=== PATIENT | male | born 1950 | race Caucasian/White ===

== ENCOUNTER 2024-03-10 08:56 | Outpatient (AMB) | payer MEDICARE, MEDICAID, SELFPAY ==
--- NOTE | 2024-03-10 08:59 | A.OFFVIS_ITS ---
Vital Signs 03/10/24 09:08 Height 6 ft Weight 269 lb 2 oz BMI 36.5 BP 124/63 Blood Pressure Location Lt brachial Position Sitting Pulse 73 Pulse Source Pulse Oximeter Pulse Oximetry (%) 96 Oxygen Delivery Method Room Air Intake Visit Reasons: Left lumbar radiculopathy Intake Note: Pain today 10/14 Labourers Required: Yes Labourers Language: Bermudian Labourers Services: Labourers Offered & Declined Labourers Name: Provider speaks Bermudian Allergies No Known Allergies Allergy (Verified 03/10/24 09:04) Medication List - Last Reconciled 03/10/24 by FRED Portillo acetaminophen (Tylenol) 325 mg PO QID PRN amlodipine 10 mg PO DAILY aspirin 325 mg PO DAILY clotrimazole 1% 1 appl topical BID diclofenac sodium 1% (Arthritis Pain (diclofenac)) 4 grams topical QID gabapentin 300 mg PO TID levothyroxine 112 mcg PO DAILY olmesartan (Benicar) 40 mg PO DAILY tamsulosin 0.4 mg PO DAILY HPI HPI Left lumbar radiculopathy: Details: Patient is a pleasant 73-year-old male with a history of chronic low back pain, left lumbar radiculopathy, bilateral knee pain, hand arthritis, who presents today for initial evaluation of acute on chronic low back pain with radicular symptoms. Patient is accompanied by his grand-daughter. Labourers not utilized today, provider is fluent in Bermudian. Denies any specific trauma, injury or inciting events. Reports history of mechanical fall a few months ago which increased his right knee pain. 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 Back pain is axial and also radiates into bilateral lower extremities posteriorly and into his feet. Reports significant cramping and tenderness in his calves and upper inner thighs, worse on the left. Denies previous spine surgery or injections. He is followed at [facility] for knee and hand arthritis and regularly receives cortisone and gel knee injections. Back pain is aggravated by walking, twisting, bending, climbing stairs, weight bearing, changing positions and partially relieved with rest, Tylenol, topical applications, and heat therapy. Patient reports he takes gabapentin for gout in his feet and it helps with leg cramping. He completed a course of physical therapy and massages without any improvement. Patient reports recently stopped swimming due to increased pain. Pain affects his daily activities and functioning, mobility, sleep, and recreational activities. Denies any fever or chills, abdominal or groin pain, foot drop, bladder or bowel dysfunction or saddle anesthesia. Reports left lower extremity weakness due to pain. Ambulates with mildly antalgic gait with the use of cane. Oswestry low back disability score =27 (severe disability) Location: Lower back radiates down bilateral legs, worse on the left Duration: Chronic pain for many years, worsening for past 1-2 years Characteristics of symptom or complaint: Aching, tingling, pins and needles, shooting, pulling, cramping Aggravating or associated factors: Movements, climbing stairs, bending, standing, walking, cold weather Relieving factors: Stretching, Tylenol, IcyHot, lidocaine patches, heat, rest Treatment: PT, back brace, massages, aqua therapy, cane, knee injections [facility] Medical History (Updated 03/10/24 @ 09:57 by FRED Portillo) Pre-diabetes HTN (hypertension) Hand arthritis Bilateral knee pain Lumbar radiculopathy Chronic low back pain Constipation Surgical History (Updated 03/10/24 @ 09:54 by FRED Portillo) H/O hemorrhoidectomy History of nasal surgery (~2023) Social History (Updated 03/10/24 @ 09:08 by Desi Sharp) Alcohol intake: never Patient Tobacco Use Status: Never used Tobacco Review of Systems Const All systems reviewed & are unremarkable except as noted in HPI and below Reports as per HPI, Denies body aches, Denies chills, Reports difficulty sleeping, Denies fever(s), Denies frequent falls, Denies malaise, Denies night sweats, Reports weakness (LLE due to pain) and Denies weight loss Card Denies chest pain, Denies chest pain with activity, Reports claudication (tenderness and cramping BLE calves, left>right), Denies lightheadedness, Denies palpitations and Denies dyspnea on exertion Resp Denies cough and Denies dyspnea on exertion GI Denies abdominal pain, Reports constipation (chronic), Denies nausea and Denies vomiting Neuro Denies frequent falls and Reports weakness (LLE due to pain) Endo Denies palpitations Physical Exam Vital Signs: Last Vital Signs Pulse 73 03/10/24 09:08 BP 124/63 03/10/24 09:08 Pulse Ox 96 03/10/24 09:08 Oxygen Delivery Method Room Air 03/10/24 09:08 BMI result Body Mass Index 36.5 General: Appears afebrile. Alert and oriented. Mood and affect appropriate. Follows and participates in conversation appropriately. Respiratory effort is unlabored. No cough. Able to transition from sit to stand unassisted. Uses cane with ambulation. Ambulates with bilaterally normal heel strike and toe off, reports increase in pain on the left with heel/toe standing. General: Yes no CVA tenderness Back/Spine/Pelvis Other: Limited lumbar ROM due to pain. Antalgic gait with mild limping. Can flex forward to 70-75 degrees and extend to 5-10 degrees before experiencing lumbar pain. Demonstrates 5/5 right and 4/5 left strength of quadriceps bilaterally as well as flexion/dorsiflexion of bilateral feet against resistance. 2+ pedal pulses bilaterally. Straight leg rise with dorsiflexion positive on the left. Diminished patellar and achilles reflexes bilaterally. Facet loading test positive bilaterally. Waqar sign positive bilaterally, Dane?s reproduces lateral hip pain bilaterally, Pelvic compression and Stinchfield tests are negative bilaterally. No groin pain with I/E hip rotations. Valsalva maneuver negative. Back: no CVA tenderness Cervical Spine: loss of normal cervical lordosis, cervical muscular tenderness, No Cervical spine tenderness and No step off deformity Thoracic/Lumbar Spine: thoracic and lumbar spine normal to inspection, No Thoracic/lumbar spine scar(s), Lasegue's sign positive on the left and localized, pain with thoraco-lumbar ROM, paraspinal muscle tenderness on the left greater than right, thoraco-lumbar ROM limited, No thoracic spinal tenderness and lumbar spinal tenderness (L3-S1) Pelvis: buttock tenderness on the left Sacroiliac joints: bilaterally tender to palpation Extrem General: Yes capillary refill normal, Yes no clubbing, cyanosis or edema, Yes calf tenderness (BLE, left>right) and No venous stasis dermatitis Right lower extremity: knee (Limited ROM due to pain) Details: normal to inspection, tenderness Location: of the medial joint line and of the lateral joint line and crepitus; no swelling, no ecchymosis, no deformity and no unusual warmth Left lower extremity: knee (Limited ROM due to pain) Details: normal to inspe ction, tenderness Location: of the patella, of the medial joint line and of the lateral joint line and crepitus; no ecchymosis, no deformity and no unusual warmth Results Reviewed Results Reviewed: No imaging results are available for review today. Assessment & Plan Assessment & Plan (1) Lumbosacral spondylosis: Code(s): M47.817 - Spondylosis without myelopathy or radiculopathy, lumbosacral region Category: Medical (2) Lumbar radiculopathy: Code(s): M54.16 - Radiculopathy, lumbar region Category: Medical (3) Lumbosacral spondylosis: Code(s): M47.817 - Spondylosis without myelopathy or radiculopathy, lumbosacral region Category: Medical (4) Lumbar degenerative disc disease: Code(s): M51.369 - Other intervertebral disc degeneration, lumbar region without mention of lumbar back pain or lower extremity pain Category: Medical (5) Chronic low back pain: Code(s): M54.50 - Low back pain, unspecified; G89.29 - Other chronic pain Category: Medical (6) Bilateral calf pain: Code(s): M79.661 - Pain in right lower leg; M79.662 - Pain in left lower leg Category: Medical (7) Bilateral lower extremity edema: Code(s): R60.0 - Localized edema Category: Medical (8) Lumbosacral spondylosis: Code(s): M47.817 - Spondylosis without myelopathy or radiculopathy, lumbosacral region Category: Medical (9) Lumbar radiculopathy: Code(s): M54.16 - Radiculopathy, lumbar region Category: Medical (10) Lumbar degenerative disc disease: Code(s): M51.369 - Other intervertebral disc degeneration, lumbar region without mention of lumbar back pain or lower extremity pain Category: Medical (11) Bilateral knee pain: Comment: Receives cortisone and gel injections at [facility] Code(s): M25.561 - Pain in right knee; M25.562 - Pain in left knee Category: Medical Plan Lumbar spine imaging to assess degree of degenerative changes, any subluxation, listhesis, compression fractures or pars defects.?MRI of the lumbar spine to assess for neural integrity and compression. Patient's back pain has been resistant to conservative treatments, including PT, massages, aqua therapy, topical and oral medications, activity modifications. Discussed treatment options for both his axial low back as well as radicular pain. Informational pamphlets provided to patient and family. We will review imaging prior to interventional treatments. Encouraged patient daily physical activity, adequate hydration, good posture, and weight loss. US venous duplex of BLE to rule out DVT. Reports chronic cramping and tenderness on palpation in both calves, left worse than right. All questions and concerns have been answered and the patient agreed with the treatment plan.? Follow-up for x-ray/MRI/US results and sooner as needed. Orders: Orders XR lumbar spine 4V min Today G89.29 - Other chronic pain, M47.817 - Spondylosis without myelopathy or radiculopathy, lumbosacral region, M51.369 - Other intervertebral disc degeneration, lumbar region without mention of lumbar back p ain or lower extremity pain, M54.16 - Radiculopathy, lumbar region, M54.50 - Low back pain, unspecified US venous duplex LE BI Today M79.661 - Pain in right lower leg, M79.662 - Pain in left lower leg, R60.0 - Localized edema MR lumbar spine wo con Today M47.817 - Spondylosis without myelopathy or radiculopathy, lumbosacral region, M51.369 - Other intervertebral disc degeneration, lumbar region without mention of lumbar back pain or lower extremity pain, M54.16 - Radiculopathy, lumbar region Coding Level of Care Code New Pt Level 4 (72570) Complex EM visit Add On G2211 Diagnoses Lumbosacral spondylosis M47.817 Lumbar radiculopathy M54.16 Lumbar degenerative disc disease M51.369 Chronic low back pain M54.50; G89.29 Bilateral calf pain M79.661; M79.662 Bilateral lower extremity edema R60.0 Bilateral knee pain M25.561; M25.562
[2024-03-10 09:08] VITALS: BP 124/63; PULSE 73; O2SAT 96; BMI 36.5
== END 2024-03-10 09:47 | disposition home or self-care (01) ==
PROVIDERS: PCP Physician Assistant; Visit Provider Nurse Practitioner Family
DX: M47.817 Spondylosis without myelopathy or radiculopathy, lumbosacral region (principal); M54.16 Radiculopathy, lumbar region; M51.369 Other intervertebral disc degeneration, lumbar region without mention of lumbar back pain or lower extremity pain; M54.50 Low back pain, unspecified; G89.29 Other chronic pain; M79.661 Pain in right lower leg; M79.662 Pain in left lower leg; R60.0 Localized edema; M25.561 Pain in right knee; M25.562 Pain in left knee
CPT/HCPCS: 99204; G2211

== ENCOUNTER 2024-03-10 08:56 | Outpatient (REF) | payer MEDICARE, MEDICAID, SELFPAY | END 2024-03-10 08:57 | disposition home or self-care (01) | LOC: HO.XRAY 08:56 | PROVIDERS: PCP Physician Assistant; Visit Provider Nurse Practitioner Family | DX: M47.817 Spondylosis without myelopathy or radiculopathy, lumbosacral region (principal); M54.16 Radiculopathy, lumbar region; M51.369 Other intervertebral disc degeneration, lumbar region without mention of lumbar back pain or lower extremity pain; M54.50 Low back pain, unspecified; G89.29 Other chronic pain; M79.661 Pain in right lower leg; M79.662 Pain in left lower leg; R60.0 Localized edema; M25.561 Pain in right knee; M25.562 Pain in left knee | CPT/HCPCS: 72110; 99202 ==

== ENCOUNTER 2024-03-14 15:15 | Outpatient (REF) | payer MEDICARE, MEDICAID, SELFPAY ==
--- NOTE | ~2024-03-14 | US_ITS ---
EXAMINATION: US TRIPLEX LOWER EXTREMITY, BILATERAL CLINICAL INFORMATION: Pain in right lower leg COMPARISON: None available. TECHNIQUE: Color-flow triplex imaging with spectral analysis and compression Doppler were performed on the bilateral lower extremities. FINDINGS: Respiratory variation, normal compression and augmented flow are noted throughout the bilateral lower extremities. The visualized common femoral vein, superficial femoral vein, profunda femoral vein, popliteal vein and midcalf peroneal and posterior tibial venous segments show no evidence of deep venous thrombosis bilaterally. There is no Valdes's cyst. US/US venous duplex LE BI IMPRESSION: No evidence of deep venous thrombosis involving the bilateral lower extremities. Electronically signed by: eKn Zelaya MD 03/14/2024 03:54 PM EST Workstation: [id number]
== END 2024-03-14 15:16 | disposition home or self-care (01) ==
LOC: HO.US 15:15
PROVIDERS: PCP Physician Assistant; Visit Provider Nurse Practitioner Family
DX: M79.661 Pain in right lower leg (principal); M79.662 Pain in left lower leg; R60.0 Localized edema
CPT/HCPCS: 93970

== ENCOUNTER 2024-04-07 08:41 | Outpatient (AMB) | payer MEDICARE, MEDICAID, SELFPAY ==
--- NOTE | 2024-04-07 08:49 | A.OFFVIS_ITS ---
Vital Signs 04/07/24 08:55 Height 6 ft Weight 270 lb BMI 36.6 BP 125/60 Blood Pressure Location Lt brachial Position Sitting Pulse 68 Pulse Source Pulse Oximeter Pulse Oximetry (%) 99 Oxygen Delivery Method Room Air Intake Visit Reasons: Discuss MRI Results Intake Note: Pain today 5 Front End Developer Designer Required: Yes Front End Developer Designer Language: Brazilian Front End Developer Designer Services: Front End Developer Designer Offered & Declined Front End Developer Designer Name: Provider is fluent in Brazilian Accompanied by: Family/Other Allergies No Known Allergies Allergy (Verified 04/07/24 08:55) HPI Comments Details: Patient presents today for follow up today to discuss recent lumbar spine MRI results. He continues to endorse low back pain with radiculopathy, both legs, worse on the left. Pain radiates into his buttocks and into lower calves and ankles with numbness and tingling. He also reports bilateral knee pain and is interested in therapeutic injections for both pain generators, initially for back pain. His mobility and functioning has been significantly limited due to pain. Reports increase low back and left leg pain with coughing or bowel movements when straining. Recent bilateral lower extremities US was negative for DVT. Lumbar spine MRI is noted below and was reviewed with patient and family today. Patient is hesitant towards back surgery but will consider Neurosurgical evaluation if no pain relief or function improvement with injection. Denies any fever or chills, abdominal or groin pain, foot drop, bladder or bowel dysfunction or saddle anesthesia. PRIOR: Patient is a pleasant 73-year-old male with a history of chronic low back pain, left lumbar radiculopathy, bilateral knee pain, hand arthritis, who presents today for initial evaluation of acute on chronic low back pain with radicular symptoms. Patient is accompanied by his grand-daughter. Front End Developer Designer not utilized today, provider is fluent in Brazilian. Denies any specific trauma, injury or inciting events. Reports history of mechanical fall a few months ago which increased his right knee pain. 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 Back pain is axial and also radiates into bilateral lower extremities posteriorly and into his feet. Reports significant cramping and tenderness in his calves and upper inner thighs, worse on the left. Denies previous spine surgery or injections. He is followed at [facility] for knee and hand arthritis and regularly receives cortisone and gel knee injections. Back pain is aggravated by walking, twisting, bending, climbing stairs, weight bearing, changing positions and partially relieved with rest, Tylenol, topical applications, and heat therapy. Patient reports he takes gabapentin for gout in his feet and it helps with leg cramping. He completed a course of physical therapy and massages without any improvement. Patient reports recently stopped swimming due to increased pain. Pain affects his daily activities and functioning, mobility, sleep, and recreational activities. Denies any fever or chills, abdominal or groin pain, foot drop, bladder or bowel dysfunction or saddle anesthesia. Reports left lower extremity weakness due to pain. Ambulates with mildly antalgic gait with the use of cane. Oswestry low back disability score =27 (severe disability) Location: Lower back radiates down bilateral legs, worse on the left Duration: Chronic pain for many years, worsening for past 1-2 years Characteristics of symptom or complaint: Aching, tingling, pins and needles, shooting, pulling, cramping Aggravating or associated factors: Movements, climbing stairs, bending, standing, walking, cold weather Relieving factors: Stretching, Tylenol, IcyHot, lidocaine patches, heat, rest Treatment: PT, back brace, massages, aqua therapy, cane, knee injections [facility] Medical History Pre-diabetes HTN (hypertension) Hand arthritis Bilateral knee pain Lumbar radiculopathy Chronic low back pain Constipation Surgical History H/O hemorrhoidectomy History of nasal surgery (~2023) Social History Alcohol intake: never Patient Tobacco Use Status: Never used Tobacco Review of Systems Const All systems reviewed & are unremarkable except as noted in HPI and below Physical Exam Vital Signs: Last Vital Signs Pulse 68 04/07/24 08:55 BP 125/60 04/07/24 08:55 Pulse Ox 99 04/07/24 08:55 Oxygen Delivery Method Room Air 04/07/24 08:55 BMI result Body Mass Index 36.6 General: Appears afebrile. Alert and oriented. Mood and affect appropriate. Follows and participates in conversation appropriately. Respiratory effort is unlabored. No cough. Able to transition from sit to stand unassisted. Uses cane with ambulation. Ambulates with bilaterally normal heel strike and toe off, reports increase in pain with toe standing, worse on the left. General: Yes no CVA tenderness Back/Spine/Pelvis Other: Limited lumbar ROM due to pain. Antalgic gait with mild limping, uses cane with ambulation. Can flex forward to 65-70 degrees and extend to 5-10 degrees before experiencing lumbar pain. Demonstrates 5/5 right and 4/5 left strength of quadriceps bilaterally as well as flexion/dorsiflexion of bilateral feet against resistance. 2+ pedal pulses bilaterally. Straight leg rise with dorsiflexion positive bilaterally, worse on the left. Diminished patellar and achilles reflexes bilaterally. Facet loading test positive bilaterally. Waqar sign positive bilaterally, Dane?s reproduces lateral hip pain bilaterally, Pelvic compression and Stinchfield tests are negative bilaterally. No groin pain with I/E hip rotations. Valsalva maneuver is positive. Back: no CVA tenderness Cervical Spine: loss of normal cervical lordosis, cervical muscular tenderness, No Cervical spine tenderness and No step off deformity Thoracic/Lumbar Spine: thoracic and lumbar spine normal to inspection, No Thoracic/lumbar spine scar(s), Lasegue's sign positive (localized on the left, diffuse on the right) bilateral, pain with thoraco-lumbar ROM, paraspinal muscle tenderness on the left greater than right, thoraco-lumbar ROM limited, No thoracic spinal tenderness and lumbar spinal tenderness (L3-S1) Pelvis: buttock tenderness bilaterally Sacroiliac joints: bilaterally tender to palpation Extrem General: Yes capillary refill normal, Yes no clubbing, cyanosis or edema, Yes calf tenderness (BLE, left>right) and No venous stasis dermatitis Right lower extremity: knee (Limited ROM due to pain) Details: normal to inspection, tenderness Location: of the medial joint line and of the lateral joint line and crepitus; no swelling, no ecchymosis, no deformity and no unusual warmth Left lower extremity: knee (Limited ROM due to pain) Details: normal to inspection, tenderness Location: of the patella, of the medial joint line and of the lateral joint line and crepitus; no ecchymosis, no deformity and no unusual warmth Results Reviewed Results Reviewed: MR SPINE LUMBAR without CONTRAST 03/24/24 at [facility] INDICATION: Radiculopathy, lumbar region. Intervertebral disc degeneration. TECHNIQUE: Unenhanced multiplanar, multisequence MR imaging of the lumbar spine. COMPARISON: None Available. FINDINGS: Normal lumbar alignment is demonstrated. Vertebral heights are well maintained. Bone marrow signal is within normal limits, and no suspicious osseous lesion is identified. Conus medullaris is unremarkable. There is multilevel disc desiccation and disc space narrowing. There is minimal bone marrow edema in the L2 vertebral body suggesting mild type I Modic endplate changes. There is 1 to 2 mm retrolisthesis of L2 on L3 and L3 on L4. Paraspinal soft tissues and visualized portions of the abdomen and pelvis are unremarkable. Bilateral renal cysts are demonstrated. At L1-2 there is mild annular disc bulge and mild facet arthrosis. Central canal is patent. There is moderate right and mild left neural foraminal stenosis. At L2-3 there is mild annular disc bulge and left foraminal small disc protrusion mild facet arthrosis. There is mild narrowing of the left lateral recess. There is mild/moderate right and moderate to advanced left neural foraminal stenosis. At L3-4 there is broad-based disc bulge and mild to moderate facet arthrosis. There is moderate central canal stenosis with advanced bilateral neural foraminal stenosis.. At L4-5 there is broad-based disc bulge and moderate to advanced facet arthrosis greater on the left. There is moderate to advanced central canal stenosis with advanced bilateral neural foraminal stenosis. At L5-S1 there is broad-based disc bulge and central disc protrusion. There is moderate to advanced central canal and right greater than left lateral recess stenosis with contact of the descending right S1 nerve root. There is advanced high-grade bilateral neural foraminal stenosis. IMPRESSION: Multilevel significant degenerative changes of the lumbar spine. Varying degrees of central canal or neural foraminal stenosis greater at L5-S1 with advanced high-grade bilateral neural foraminal stenosis. Less pronounced findings as described. US TRIPLEX LOWER EXTREMITY, BILATERAL 03/14/24 at [facility] CLINICAL INFORMATION: Pain in right lower leg FINDINGS: Respiratory variation, normal compression and augmented flow are noted throughout the bilateral lower extremities. The visualized common femoral vein, superficial femoral vein, profunda femoral vein, popliteal vein and midcalf peroneal and posterior tibial venous segments show no evidence of deep venous thrombosis bilaterally. There is no Valdes's cyst. IMPRESSION: No evidence of deep venous thrombosis involving the bilateral lower extremities. Assessment & Plan Assessment & Plan (1) Bilateral knee pain: Comment: Receives cortisone and gel injections at [facility] Code(s): M25.561 - Pain in right knee; M25.562 - Pain in left knee Category: Medical (2) Constipation: Code(s): K59.00 - Constipation, unspecified Category: Medical (3) Lumbosacral spondylosis: Code(s): M47.817 - Spondylosis without myelopathy or radiculopathy, lumbosacral region Category: Medical (4) Lumbar radiculopathy: Code(s): M54.16 - Radiculopathy, lumbar region Category: Medical (5) Lumbar degenerative disc disease: Code(s): M51.369 - Other intervertebral disc degeneration, lumbar region without mention of lumbar back pain or lower extremity pain Category: Medical (6) Spinal stenosis, lumbar region with neurogenic claudication: Code(s): M48.062 - Spinal stenosis, lumbar region with neurogenic claudication Category: Medical Plan Lumbar spine MRI and US of BLE results were discussed today with patient and family. For ongoing radicular symptoms, will proceed with L5-S1 Interlaminar PETEY with local and fluoroscopy. Patient is not diabetic and denies anti-coagulation medication. Reports not taking Aspirin or fish oil daily. Expectations, risks and benefits were reviewed. Patient is aware he will be contacted to schedule this procedure. Bilateral knee xray to assess degree of arthritis and rule out effusion. Briefly discussed interventional treatments for knee pain, including diagnostic vs therapeutic injections, RFA or Spring PNS trial. Script provided for Senna for occasional constipation at patient's request. Encouraged adequate daily hydration and dietary fiber as well as regular physical activity as tolerated. All questions were answered and the patient is in agreement of plan. Follow-up after injections and sooner as needed. Orders: Orders XR knee LT 3V Today M25.561 - Pain in right knee, M25.562 - Pain in left knee XR knee RT 3V Today M25.561 - Pain in right knee, M25.562 - Pain in left knee Medications: New sennosides (Senna Laxative) 8.6 mg PO BID PRN 60 tabs 3RF constipation K59.00 - Constipation, unspecified Coding Level of Care Code Est Pt Level 4 (96877) Complex EM visit Add On G2211 Diagnoses Bilateral knee pain M25.561; M25.562 Constipation K59.00 Lumbosacral spondylosis M47.817 Lumbar radiculopathy M54.16 Lumbar degenerative disc disease M51.369 Spinal stenosis, lumbar region with neurogenic claudication M48.062
[2024-04-07 08:55] VITALS: BP 125/60; PULSE 68; O2SAT 99; BMI 36.6
== END 2024-04-07 09:22 | disposition home or self-care (01) ==
PROVIDERS: PCP Physician Assistant; Visit Provider Nurse Practitioner Family
DX: M25.561 Pain in right knee (principal); M25.562 Pain in left knee; K59.00 Constipation, unspecified; M47.817 Spondylosis without myelopathy or radiculopathy, lumbosacral region; M54.16 Radiculopathy, lumbar region; M51.369 Other intervertebral disc degeneration, lumbar region without mention of lumbar back pain or lower extremity pain; M48.062 Spinal stenosis, lumbar region with neurogenic claudication
CPT/HCPCS: 99214; G2211

== ENCOUNTER → 2024-04-07 08:41 | Outpatient (BNVA) | payer MEDICARE, MEDICAID, SELFPAY | PROVIDERS: PCP Physician Assistant; Visit Provider Nurse Practitioner Family | DX: M25.561 Pain in right knee (principal); M25.562 Pain in left knee; M47.817 Spondylosis without myelopathy or radiculopathy, lumbosacral region; M54.16 Radiculopathy, lumbar region; M51.369 Other intervertebral disc degeneration, lumbar region without mention of lumbar back pain or lower extremity pain; M48.062 Spinal stenosis, lumbar region with neurogenic claudication | CPT/HCPCS: 99212 ==

== ENCOUNTER 2024-07-01 06:17 | Outpatient (REF) | payer MEDICARE, MEDICAID, SELFPAY ==
--- NOTE | ~2024-07-01 | FL_ITS ---
EXAMINATION: FL GUIDANCE ONLY HISTORY: M48.062 - Spinal stenosis, lumbar region with neurogenic claudication COMPARISON: None available. TECHNIQUE: Fluoroscopy time: 0.4 minutes. Cumulative Dose: 12.1 mGy. DAP: 0.187 mGym2 Images: 2. FINDINGS: Images demonstrate a needle directed toward the L5-S1 intervertebral disc space from a posterior approach. FL/FL guidance in treatment room IMPRESSION: Fluoroscopy during procedure. Please see procedure report for additional information. Electronically signed by: Ramirez Min MD 07/01/2024 01:41 PM EST
--- OUTSIDE RECORDS SUMMARY | 2024-07-01 06:20 | XMS_ITS | Clinical Summary ---
Author Organization [employer] Address [address] [facility] [address] [place] [address] Care Team Providers Care Center Lead Consultant Name Role Phone Unavailable Primary Care Provider Unavailabl e Allergies No known active allergies Medications amLODIPine (Norvasc) 10 MG tablet 3 Active Aspirin Low Dose 81 MG EC tablet Take 81 mg by mouth in the morning. 3 Active Diclofenac Sodium 1 % gel APPLY 4 GRAMS TOPICALLY TO THE AFFECTED AREA 4 TIMES DAILY BEFORE MEALS AND NIGHTLY) 3 Active clotrimazole-be tamethasone (Lotrisone) cream Apply topically 2 times daily. 3 Active gabapentin (Neurontin) 300 MG capsule 3 Active levothyroxine (Synthroid, Levoxyl) 125 MCG tablet 3 Active meloxicam (Mobic) 15 MG tablet Take 15 mg by mouth in the morning. 3 Active olmesartan-hydr oCHLOROthiazide (BENIcar HCT) 40-25 MG tablet 3 Active rosuvastatin (Crestor) 10 MG tablet 3 Active tamsulosin (Flomax) 0.4 MG 24 hr capsule Take 0.4 mg by mouth. 8 Active Social History Tobacco Use Types Packs/Day Years Used Date Smoking Tobacco: Never Smokeless Tobacco: Never Tobacco Cessation:Counseling Given: Not Answered Sex and Gender Information Value Date Recorded Sex Assigned at Male 10/31/2022 1:34 PM EDT Legal Sex Male 1:26 PM EDT Gender Identity Male 10/31/2022 1:34 PM EDT Sexual Orientation Choose not to disclose 2022 1:34 PM EDT Last Filed Vital Signs Vital Sign Reading Time Taken Comments Blood Pressure 157/76 11/02/2022 3:19 PM EDT Pulse 74 11/02/2022 3:19 PM EDT Temperature - - Respiratory Rate - - Oxygen Saturation - - Inhaled Oxygen Concentration - - Weight - - Height - - Body Mass Index - - Plan of Treatment Health Maintenance Due Date Last Done Comments CT Colonography 1951 Colonoscopy 1951 Colorectal Cancer Screening 1951 Dental Prophylaxis 1951 Depression Screening 1951 FIT DNA/Cologuard 1951 FIT 1951 FOBT 1951 Lipid Panel 1951 SDOH Screening 1951 Sigmoidoscopy 1951 Alcohol/Substance Use Screening 1963 Hepatitis C Screening 12/13/1969 Zoster Vaccines (1 of 2) 12/13/2001 Hepatitis B Vaccines (2 of 3 - 19+ 3-dose series) 02/11/2015 01/14/2015 Dental Oral Exam 05/05/2023 11/02/2022 Tobacco Screening 11/03/2023 11/02/2022 Dental X-Ray: Bitewings 11/04/2023 11/02/2022 COVID-19 Vaccine ( - 2023-2 5 season) 2024 Influenza Vaccine (#1) 2024 DTaP/Tdap/Td Vaccines (3 - T d or Tdap) 01/14/2025 01/14/2015, 12/10/2014 Dental X-Ray: Full Mouth 11/03/2025 11/02/2022 RSV Patients and Patients Aged 60 years or older (1 - 1-dose 75+ series) 12/13/2026 Pneumococcal Vaccine: 50+ Years Completed 01/16/2023 HIB Vaccines Aged Out No longer eligi ble based on patient's age to complete this topic HPV Vaccines Aged Out No longer eligi ble based on patient's age to complete this topic Hepatitis A Vaccines Aged Out No long er eligible based on patient's age to complete this topic IPV Vaccines Aged Out No longer eligi ble based on patient's age to complete this topic Meningococcal Vaccine Aged Out No ceasar izzy eligible based on patient's age to complete this topic RSV under 20 months Aged Out No longe r eligible based on patient's age to complete this topic Rotavirus Vaccines Aged Out No longer eligible based on patient's age to complete this topic Procedures Procedure Name Priority Date/Time Associated Diagnosis Comments INTRAORAL - COMPLETE SERIES OF RADIOGRAPHIC IMAGES Routine 11/02/2022 3:00 PM EDT Encounter for dental examination COMPREHENSIVE ORAL EVALUATION - NEW OR ESTABLISHED PATIENT Routine 11/02/2022 3:00 PM EDT from Last 3 Months or Most Recently Relevant to Health Maintenance Insurance [facility] MEDICAID STAND ADULT
--- OUTSIDE RECORDS SUMMARY | 2024-07-01 06:20 | XMS_ITS | Encounter Summary ---
Author Organization [facility] Address [address] [place] [address] Care Team Providers Care Dinking Machine Operator Name Role Phone Lyssa Estrada PA-C Primary Care Provider [phone] Encounter Details Date Type Department Care Team (Late st Contact Info) Description 01/08/2015 Interim Notes [address] [place] [id number] Kadie Stevens NP [address] [facility]. [place], [place] [id number] Refugee health examination Social History Tobacco Use Types Packs/Day Years Used Date Smoking Tobacco: Never Alcohol Use Standard Drinks/Week Comments Not Asked 0 (1 standard drink = 0.6 oz pur e alcohol) Sex and Gender Information Value Date Recorded Sex Assigned at Male 03/05/2017 6:38 PM PDT Legal Sex Male 10:53 AM PDT Gender Identity Male 03/05/2017 6:38 PM PDT Sexual Orientation Straight 03/05/2017 6: 38 PM PDT documented as of this encounter Plan of Treatment Not on file documented as of this encounter Procedures Procedure Name Priority Date/Time Associated Diagnosis Comments GIARDIA ANTIGEN Routine 01/08/2015 12:00 AM EDT Refugee health examination documented in this encounter Results * GIARDIA ANTIGEN (01/08/2015 12:00 AM EDT) GIARDIA ANTIGEN, EIA NEGATIVE FOR GIARDIA LAMBLIA ANTIGEN [facility] Stool specimen (specimen) Stool specimen / Unknown 01/08/2015 01/08/2015 9:14 PM EDT Narrative [facility] - 01/09/2015 12:11 AM EDT [address] [address] [place] [address] PT ID [id number] ORD# [id number] SOURCE: STOOL; Kadie Stevens NP LAB - BLOOD DRAW Final Result [facility] [address] [place] [address], documented in this encounter Visit Diagnoses Diagnosis Refugee health examination Health examination of defined subpopulation documented in this encounter Care Teams Dinking Machine Operator Relationship Specialty Start Date End Date Lyssa Estrada PA-C [address] [place] [phone] PCP - General Internal Medicine 08/20/15 documented as of this encounter
--- OUTSIDE RECORDS SUMMARY | 2024-07-01 06:20 | XMS_ITS | Encounter Summary ---
Author Organization [facility] Address [address] [place] [address] Care Team Providers Care Mental Measurements Teacher Name Role Phone Lyssa Estrada PA-C Primary Care Provider [phone] Encounter Details Date Type Department Care Team (Late st Contact Info) Description 01/08/2015 Interim Notes [facility] [address] [place] [phone] Kadie Stevens NP [address] [facility]. [place], [place] [phone] Refugee health examination (Primary Dx) Social History Tobacco Use Types Packs/Day Years [...] on file documented as of this encounter Results * GIARDIA ANTIGEN (01/08/2015 12:00 AM EDT) GIARDIA ANTIGEN, EIA NEGATIVE FOR GIARDIA LAMBLIA ANTIGEN [facility] Stool specimen (specimen) Stool specimen / Unknown 01/08/2015 01/08/2015 9:14 PM EDT Narrative [facility] - 01/09/2015 12:11 AM EDT [employer] [address] [place] [address] PT ID [id number] ORD# [id number] SOURCE: STOOL; Kadie Stevens NP LAB - BLOOD DRAW Final Result [facility] [address] [place] [address], documented in this encounter Visit Diagnoses Diagnosis Refugee health examination- Primary Health examination of defined subpopulation Refugee health examination Health examination of defined subpopulation documented in this encounter Care Teams Mental Measurements Teacher Relationship Specialty Start Date End Date Lyssa Estrada PA-C [address] [place] [phone] PCP - General Internal Medicine 08/20/15 documented as of this encounter
--- OUTSIDE RECORDS SUMMARY | 2024-07-01 06:20 | XMS_ITS | Clinical Summary ---
Author Organization [facility] Address [address] [place] [address] Care Team Providers Care Frame Welder Cargo Utility Trailers Name Role Phone Lyssa Estraad PA-C Primary Care Provider [phone] Source Comments PLEASE NOTE, if this patient is a minor, it may be UNLAWFUL to discuss sensitive information that is contained in these records (such as FAMILY PLANNING, MENTAL HEALTH or SUBSTANCE ABUSE) with the minor patient's parent or other person without the patient's specific authorization.[facility] Allergies Active Allergy Reactions Criticality Noted Date Comments Antony Inhibitors 03/04/2019 Cough Medications miscellaneous medical supply misc by miscellaneous route once daily SI joint belt, disp1, lifetime need, dx SI joint dysfunction 1 Each 021 Active cloNIDine (CATAPRES) 0.1 mg/24 hr patchIndications: Essential hypertension, benign Place 1 Patch onto the skin once a week 4 Patch 3 022 Active caneIndications:R outine general medical examination at a health care facility CANE, See Instructions, # 1 each, Refills 0, Tot. Refills 0, Maintenance, USE CANE NEEDED FOR KNEE PAIN, 02/13/20 12:54:00 EDT, Supply 020 Active triamcinolone acetonide (KENALOG) 0.1 % creamIndications: Atopic dermatitis, unspecified type Apply topically 2 (two) times daily 80 g 3 022 Active olmesartan-hydroc hlorothiazide (BENICAR HCT) 20-12.5 mg per tablet Take 2 Tablets by mouth once daily 30 Tablet 11 022 Active polyethylene glycol 3350 17 gram/dose powderIndications :Functional constipation Take 17 g by mouth once daily Dissolve in a glass (8 oz) of water. 850 g 5 022 Active esomeprazole magnesium (NEXIUM) [address] capsuleIndication s:Dyspepsia Take 1 Capsule by mouth every morning before breakfast 90 Capsule 3 022 Active fluticasone (FLONASE) 50 mcg/actuation nasal sprayIndications: Rhinorrhea INSTILL 2 SPRAYS INTO BOTH NOSTRILS ONCE DAILY 023 Active MISCELLANEOUS MEDICAL SUPPLY MISCIndications:B ilateral plantar fasciitis,Gouty arthropathy by miscellaneous route daily. 4 wheel walker with bench and brake, disp1, lifetime need, dx osteoarthritis/l umbar disc disease 1 Each 023 Active MISCELLANEOUS MEDICAL SUPPLY MISCIndications:B ilateral plantar fasciitis,Gouty arthropathy by miscellaneous route daily. Heel cups for bilateral plantar fasciitis, disp1 pair, dx bilateral plantar fasciitis 2 Each 023 Active sodium chloride (OCEAN) 0.65 % nasal sprayIndications: Nasal congestion Place 1 What Cheer into the nostril(s) as needed for congestion 44 mL 3 023 Active lidocaine-priloca ine (EMLA) 2.5-2.5 % creamIndications: External hemorrhoid,Functi onal constipation Apply topically as needed for pain 30 g 1 023 Active witch Mitchel (TUCKS) 50 %Indications:Exte rnal hemorrhoid,Functi onal constipation Use tid with bowel movements 100 Each 11 023 Active docusate sodium (COLACE) 100 mg capsuleIndication s:Functional constipation Take 2 Capsules by mouth nightly at bedtime 180 Capsule 2 023 Active rosuvastatin (CRESTOR) 10 mg tablet TAKE ONE TABLET BY MOUTH ONCE DAILY AT BEDTIME 90 Tablet 3 024 Active amLODIPine (NORVASC) 10 mg tabletIndications :Essential hypertension, benign,Mixed hyperlipidemia,Pr imary osteoarthritis involving multiple joints,Gouty arthropathy,Polyn europathy associated with underlying disease (HCC-CMS),Hypothy roidism (acquired),Stage 2 chronic kidney disease,Benign prostatic hyperplasia with urinary frequency TAKE ONE TABLET BY MOUTH EVERY DAY 90 Tablet 3 024 Active ibuprofen 600 mg tabletIndications :Gouty arthropathy,Prima ry osteoarthritis involving multiple joints Take 1 Tablet by mouth every 8 (eight) hours as needed for pain, headaches, mild pain or moderate pain 90 Tablet 2 024 Active clotrimazole-beta methasone (LOTRISONE) 1-0.05 % cream APPLY TOPICALLY TWICE DAILY 60 g 11 024 Active omeprazole (PRILOSEC) [address] capsuleIndication s:Dyspepsia TAKE ONE CAPSULE BY MOUTH TWICE A DAY 180 Capsule 1 024 Active levothyroxine 125 mcg tabletIndications :Hypothyroidism (acquired) TAKE ONE TABLET BY MOUTH EVERY DAY 90 Tablet 2 024 Active gabapentin (NEURONTIN) 300 mg capsuleIndication s:Hypothyroidism (acquired),Essent ial hypertension, benign,Mixed hyperlipidemia,Pr imary osteoarthritis involving multiple joints,Gouty arthropathy,Polyn europathy associated with underlying disease (HCC-CMS),Stage 2 chronic kidney disease,Benign prostatic hyperplasia with urinary frequency TAKE 1 CAPSULE BY MOUTH EVERY 8 HOURS 270 Capsule 1 024 Active tamsulosin (FLOMAX) 0.4 mg 24 hr capsule TAKE ONE CAPSULE BY MOUTH EVERY DAY 90 Capsule 3 024 Active olmesartan-hydroc hlorothiazide (BENICAR HCT) 40-25 mg per tablet Take 1 Tablet by mouth once daily 30 Tablet 6 024 Active diclofenac sodium (VOLTAREN) 1 % gel APPLY 4GM TOPICALLY TO THE AFFECTED AREA 4 TIMES DAILY (BEFORE MEALS AND NIGHTLY) 100 g 5 024 Active allopurinoL (ZYLOPRIM) 100 mg tablet Take 1 Tablet by mouth once daily 90 Tablet 2 [address] Active aspirin [address] tabletIndications :Essential hypertension TAKE ONE TABLET BY MOUTH EVERY DAY 90 Tablet 3 [address] aspirin [address] tabletIndications :Essential hypertension TAKE ONE TABLET BY MOUTH EVERY DAY 90 Tablet 3 024 2024 Discontinued Active Problems Problem Noted Date Diagnosed Date Non morbid obesity 02/23/2020 Pre-diabetes 06/02/2019 H. pylori infection 2014, treated 07/09/2018 Hemorrhoids, colorectal eval 10/08/2017 10/26/19 18 Overview (10/25/2017): Result type: Colorectal Office Note Result date: October 08, 2017 13:08 EDT Result status: Auth (Verified) Result title: Colorectal Office Visit Performed by: Ahsan Flowers MD on October 08, 2017 13:42 EDT Verified by: Ahsan Flowers MD on October 08, 2017 13:42 EDT Encounter info: [id number], [facility], Office Visit, 10/08/2017 - 10/15/2017 Colorectal Office Visit Patient: TOVA WELLS Age: 66 years Sex: Male : 1950 Associated Diagnoses: None Author: Ahsan Flowers MD History: Mr. Wells is a 66 year old Serbian-speaking male who presents for evaluation of constipation and hemorrhoids . He tells me that he had undergone hemorrhoidectomy over 20 years ago while living in [facility]. He has had constipation since that time. He has 1 hard bowel movement a day for which she strains. He will often have a very sharp pain with defecation and will intermittently see blood. He has tried Dulcolax for the last year and a half which has not helped. He has also tried fiber in the past which has not helped. He has never had a colonoscopy. Review of Systems: Constitutional: Denies recent weight loss, fevers, or chills. Neuro: Denies recent seizures. Ears: Denies recent change in hearing. Eyes: Denies recent change in vision. Cardiovascular: Denies active chest pain. Respiratory: Denies active shortness of breath or cough. GI: Denies new onset nausea, vomiting, abdominal pain or cramping. : Denies burning, itching, stinging, or change urinary stream. Skin: Denies rash suspicious for extra-intestinal IBD. Musculoskeletal: Denies new onset weakness or arthralgias suspicious for extra-intestinal IBD. Endocrine: Denies uncontrolled diabetes and thyroid disease. 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 Allergies: No known drug allergies Medications: Reviewed in EMR Physical Exam: Vital Signs: Recorded in the electronic medical record. General: The patient appears their stated age and is in no acute distress. Neurologic: Alert and oriented x 3. Anorectal: The patient is placed in the prone jackknife position. Examination of the perianal skin reveals no obvious pathology. On eversion of the anal canal there appear to be small posterior midline acutely inflamed hemorrhoid tissue that are part internal and part external. There is no obvious anal fissure. The patient did allow me to continue with the exam. Digital rectal exam is performed. Sphincter tone is good. There are no palpable distal rectal masses and no gross blood. Anoscopy is performed in all 4 quadrants and there is no evidence of pathology of the distal rectal mucosa or anal canal other than the visualized posterior midline prolapsing tissue. Assessment: 1. Constipation 2. And rectal pain and bleeding suspicious for hemorrhoids and anal fissure Plan: With the help of an forensics analyst I explained to Mr. Wells that the differential diagnosis and causes of constipation are broad and that the first step in diagnosis and management would be colonoscopy especially as he has never had one before. He would like to undergo this test and after discussion of the risks, benefits, and alternatives I have given him an instruction sheet for a Gatorade/MiraLAX/Dulcolax based prep. My office will call to help arrange a procedure date for him. He will need to undergo medical clearance. In the meantime he should continue using stool softeners and he may want to try fiber supplements once again. Ahsan Flowers MD, FACS, FASCRS Report sent to all consultants: Lyssa Gay. Benign prostatic hyperplasia with urinary freque ncy 05/11/2017 Stage 2 chronic kidney disease 11/27/2016 History of echocardiogram 04/06/2016 06/09/2016 Overview (06/09/2016): Result type: Echocardiogram - Complete Result date: April 05, 2016 11:03 Result status: Modified Result title: Echo Complete Performed by: Madison Bajwa MD on April 05, 2016 11:03 Verified by: Madison Bajwa MD on April 05, 2016 11:03 Encounter info: [id number], [facility], 04/05/2016 - 04/05/2016 Contributor system: Capical * Final Report * Echo Complete-Doppler, Colorflow, M-Mode Transthoracic Echocardiography Report (TTE) Patient Demographics Patient Name TOVA WELLS Date of Study 04/05/2016 Corporate Gender Male Facility Race Ethnicity Date of 1950 Height: 70.08 inches Age 65 year(s) Weight: 255.74 pounds Accession Number [id number] BSA: 2.32 m2 Room Number BMI: 36.61 kg/m2 Referring Physician Marguerite OLIVARES Interpreting Physician Madison Bajwa MD Power Brake Operator eHlen Conklin [facility] Indications Hypertension. Clinical History Hypertension. Hyperlipidemia. KRISTEN Study Data Type of Study TTE procedure:Echo Complete-Doppler, Colorflow, M-Mode. Study Date04/05/2016 Start Time: 11:03 AM Study Location: 3300 Adult Echo Study Status: Echo lab Patient Status: Routine Technical Quality: Technically difficult due to body habitus. Blood Pressure:130/74 mmHg EKG: Normal sinus rhythm HR: 61 bpm 2D Measurements LV Diastolic Dimension: 4.7 cm LV Systolic Dimension: 2.7 cm LV Septum Diastolic: 1.1 cm LV PW Diastolic: 1.1 cm AO Root Dimension: 3.5 cm LA Dimension: 4.3 cm LA ESV (BP):41 ml LVOT Stroke Volume: 79.03 ml LA ESV Index: 18 ml/m2 Stroke Volume Index34.06 ml/m2 LVOT: 2.2 cm Cardiac Index:2.08 l/min/m2 Doppler Measurements AV Peak Velocity: 105 cm/s MV Peak E-Wave: 44.4 cm/s AV Peak Gradient: 4.41 mmHg MV Peak A-Wave: 61.7 cm/s MV E/A Ratio: 0.72 LVOT VTI20.8 cm MV Deceleration Time: 254 msec TR Velocity:239 cm/s TR Gradient:22.85 mmHg Estimated RAP:5 mmHg PV Peak Velocity: 90.9 cm/s Estimated RVSP: 27.8 mmHg PV Peak Gradient: 3.31 mmHg E' Septal Velocity: 6.25 cm/s E' Lateral Velocity: 6.58 cm/s E/Med E':7.104 E/Lat E':6.45990 Cardiac Anatomy Left Ventricle/Interventricular Septum The left ventricular size is normal. The left ventricular wall thickness is upper normal with upper septal thickening. Normal LV systolic function. Ejection fraction is 60-65%. There are no regional wall motion abnormalities. Grade I, mild diastolic dysfunction with impaired LV relaxation. Left Atrium/Interatrial Septum The left atrium is normal in size. Aortic Valve There is mild aortic annular calcification. The aortic valve is trileaflet . There is no aortic stenosis or insufficiency. Mitral Valve The mitral valve appears grossly normal. There is trace mitral regurgitation. Aorta The ascending aorta and aortic root are normal in size. Right Ventricle The right ventricular size is at the upper limits of normal. Right ventricular systolic function is normal. Right Atrium The right atrium is normal in size. Pulmonic Valve The pulmonic valve is poorly visualized. The pulmonic valve is functionally normal. Tricuspid Valve The tricuspid valve is grossly normal. There is trace to mild tricuspid valve regurgitation. Pumonary Artery The pulmonary artery systolic pressure estimation is within normal limits. Venous Structures The inferior vena cava appears normal. Pericardium/Extracardiac There is no pericardial effusion. Summary The left ventricular size is normal. The left ventricular wall thickness is upper normal with upper septal thickening. Normal LV systolic function. Ejection fraction is 60-65%. There are no regional wall motion abnormalities. Grade I, mild diastolic dysfunction with impaired LV relaxation. There is mild aortic annular calcification. The aortic valve is trileaflet . There is no aortic stenosis or insufficiency. The right ventricular size is at the upper limits of normal. Right ventricular systolic function is normal. The pulmonary artery systolic pressure estimation is within normal limits. Comparison No prior study available for comparison. Signature Echo Complete This document has an image Hypothyroidism (acquired) 03/03/2016 Peripheral neuropathy 11/12/2015 KRISTEN (obstructive sleep apnea) 08/20/2015 Overview (06/09/2016): Result type: Sleep Clinic Note Result date: March 03, 2016 9:33 Result status: Auth (Verified) Result title: Sleep Consultation Performed by: Raphael Stevens MD on March 03, 2016 10:05 Verified by: Raphael Stevens MD on March 03, 2016 15:40 Encounter info: [id number], [facility], Discharged OutPatient, 03/03/2016 - 03/03/2016 Sleep Consultation Patient: TOVA WELLS Age: 65 years Sex: Male : 1950 Associated Diagnoses: None Author: Raphael Stevens MD Asked to evaluate re sleep apnea by Marguerite Estrada. Serbian speaking, with base loader and SOIL CONSERVATIONIST (Marva). 65 yo male with obesity, HTN, HLD, prior kidney stones, and hx sleep studies about a year ago. Reports two sleep studies at [facility] about a year ago, second with mask . Reports was given a mask which he tried using at home (without a PAP device), but breathing was worse with the mask, so he stopped using. He was never given a PAP device. Called [facility], which faxed PSG reports. 03/29/15 PSG - 40 central apneas, 27 OA, 26 MA, 31 hypopneas; RDI 28, REM RDI 64, supine RDI 41, lateral RDI 5, low sat 79% 16 titration PSG - recommend CPAP 12, low sat 87%. Sleep questionnaire with ESS 8, to bed 10 PM, wake 7A, 2 hour nap at noon, sleep 9 hours, 10 min to fall asleep, wake 4-5x, loud snoring, witnessed apneas, gasping arousals, fatigue, tired on waking, headaches AM, dry mouth, sleep back or side, urge to move legs worse evening, dream short naps. Without FH sleep disorder. Former little smoking - 1/4 ppd for 5 years. Denies alcohol or caffeine. Went for stress test, but BP was elevated that day, so not done. Reports chest pains - under L arm and L mid/lower anterior chest, heartburn, neck and joint pain, memory loss, numbness, muscle weakness. ROS with positives as above. All other systems reviewed and negative except as noted in HPI. Past Medical History Problem list No problem items selected or recorded. Current medications (Selected) Physical Examination Vital Signs Vitals : VITAL SIGNS SECTION 03/03/2016 9:11 Pulse Rate 65 bpm Systolic Blood Pressure 139 mm Hg H Diastolic Blood Pressure 85 mm Hg H Blood pressure sites Arm, left Mean Arterial Pressure 103 mm Hg Oxygen Saturation 96 % . Weight : Weight lb/oz 03/03/2016 9:11 Weight lb/oz 261 lb 15 oz . alert, obese, NAD, not yawning Height 68 inches PER; pharynx crowded (M4) without enlarged tonsils; neck full without mass or adenopathy; chest resonant without rhonchi/wheeze/crackle; CVS regular, without murmur; abdomen soft, non-tender; extr without C/C/E without TSH on CIS Impression: 1. KRISTEN, severe supine, mild non-supine, should benefit from PAP therapy 2. while central apneas (non-ELECTRONIC PAGINATION SYSTEM OPERATOR) reported on baseline PSG, without centrals on CPAP titration PSG 3. PAP therapy had not been explained to him after prior PSG, and he had tried using mask without PAP 4. obesity, HTN, HLD, prior kidney stones Recommend: 1. Spent much time with patient discussing KRISTEN, CPAP, benefits of CPAP, sleep study results - with patient and SOIL CONSERVATIONIST 2. ordered AutoCPAP 11-16 from [facility] with nasal mask; [facility] to call his SOIL CONSERVATIONIST to help arrange 3. ordered TSH - came back 11.41, c/w hypothyroid; should start levothyroxine; will ask Marguerite Diamond to confirm starting treatment 4. recommended sleep side, not back, and weight loss 5. RTC 3 months - assess compliance/benefit of PAP then 60 minutes with patient, majority appliance counselor and coordination of care Impression and Plan Report sent to all consultants: Marguerite Gay. Essential hypertension, benign 08/20/2015 Mixed hyperlipidemia 08/20/2015 Functional constipation 08/20/2015 Gouty arthropathy 08/20/2015 Primary osteoarthritis involving multiple joints 08/20/2015 Reaction, situational, acute, to stress 08/20/19 16 Immune to varicella 12/10/2014 Overview (06/13/2016): Immune by serology test. Immunizations Name Administration Dates Next Due Hep B, Adult/Adol (ENERGIX/RECOMBIVAX) 5 INFLUENZA, SEASONAL, INJECTA BLE, PRESERVATIVE FREE 01/14/2015(Deferred: Out of Stock) MMR (MMR II/Priorix) 01/14/2015,12/10/2014 PNEUMOCOCCAL CONJUGATE PCV 20 (Prevnar) 01/17/20 23 TDAP 12/10/2014 Td (adult), 5 Lf tetanus tox oid, preservative free 01/14/2015 Social History Tobacco Use Types Packs/Day Years Used Date Smoking Tobacco: Never Smokeless Tobacco: Never Tobacco Cessation:Counseling Given: Not Answered Alcohol Use Standard Drinks/Week Comments Not Asked 0 (1 standard drink = 0.6 oz pur e alcohol) Social Connections Answer Date Recorded Connectedness 1 09/05/2023 Financial Resource Strain Answer Date R ecorded Financial Resource Strain 1 2023 Stress Answer Date Recorded Stress 1 09/05/2023 Physical Activity Answer Date Recorded Physical Activity 0 12/29/2018 Food Insecurity Answer Date Recorded Food 1 09/05/2023 Transportation Needs Answer Date Record ed Transportation 1 09/05/2023 Housing Stability Answer Date Recorded Housing 1 09/05/2023 Safety and Environment Answer Date Waldemar rded Safety 0 12/29/2018 Utilities Answer Date Recorded Utilities 1 09/05/2023 Employment Answer Date Recorded Stress 0 09/05/2023 Sex and Gender Information Value Date Recorded Sex Assigned at Male 03/05/2017 6:38 PM PDT Legal Sex Male 10:53 AM PDT Gender Identity Male 03/05/2017 6:38 PM PDT Sexual Orientation Straight 03/05/2017 6: 38 PM PDT Last Filed Vital Signs Vital Sign Reading Time Taken Comments Blood Pressure 130/72 04/24/2023 3:10 PM EST Pulse 70 04/24/2023 3:10 PM EST Temperature 36.4 ??C (97.6 ??F) 04/24/2023 3:10 PM ES T Respiratory Rate 16 04/24/2023 3:10 PM EST Oxygen Saturation 96% 04/24/2023 3:10 PM EST Inhaled Oxygen Concentration - - Weight 127.5 kg (281 lb) 04/24/2023 3:10 PM EST Height 175 cm (5' 8.9 ) 04/24/2023 3:10 PM EST Body Mass Index 41.62 04/24/2023 3:10 PM EST Plan of Treatment Health Maintenance Due Date Last Done Comments CT Colonography 12/13/1996 FIT/gFOBT 12/13/1996 Fecal DNA 12/13/1996 Flexible Sigmoidoscopy 12/13/1996 Imm-Zoster, Recombinant (1 of 2) 12/13/2001 Imm-Hepatitis B (2 of 3 - 19+ 3-dose series) 02/11/2015 01/14/2015 Falls Prevention 12/13/2016 Imm-Influenza (#1) 2024 Diabetes Screening 01/17/2024 01/16/2023, 0 01/16/2023, 01/20/2022, Additional history exists Lipid Screening 01/17/2024 01/16/2023, 01/05, 06/21/2021, Additional history exists Medicare Annual Wellness Visit 01/17/2024 01/16/2023, 06/21/2021, 02/10/2019 TSH Monitoring 01/17/2024 01/16/2023, 01/05, 06/21/2021, Additional history exists Alcohol and Drug Screen 05/07/2024 09/05/19, 09/29/2021, 04/16/2020, Additional history exists Depression Annual Screen 05/07/2024 09/05/2023, 08/05 [id number] ( season) 2024 Postponed from 01/06/2024 (Patient postponement) Imm-DTaP/Tdap/Td (3 - Td or Tdap) 01/14/2025 01/14/2015, 12/10/2014 Tobacco Screening 02/26/2025 02/27/2024 Colonoscopy 11/01/2027 10/31/2017 Colorectal Cancer Screening 11/01/2027 Hepatitis C Screening Completed 03/25/2018 Imm-Pneumococcal 65+ Completed 01/16/2023 Procedures Procedure Name Priority Date/Time Associated Diagnosis Comments REFERRAL SCANNED DOCUMENT 04/07/2024 3:00 AM EST TSH W/RFLX FREE T4 Routine 01/16/2023 2: 56 PM EDT Routine general medical examination at a health care facility Essential hypertension, benign Mixed hyperlipidemia Stage 2 chronic kidney disease Pre-diabetes Non morbid obesity Bilateral plantar fasciitis Nasal congestion SOB (shortness of breath) KRISTEN (obstructive sleep apnea) COMPREHENSIVE METABOLIC PANEL Routine 01/16/2023 2:56 PM EDT Routine general medical examination at a health care facility Essential hypertension, benign Mixed hyperlipidemia Stage 2 chronic kidney disease Pre-diabetes Non morbid obesity Bilateral plantar fasciitis Nasal congestion SOB (shortness of breath) KRISTEN (obstructive sleep apnea) LIPID PANEL Routine 01/16/2023 2:56 PM EDT Routine general medical examination at a health care facility Essential hypertension, benign Mixed hyperlipidemia Stage 2 chronic kidney disease Pre-diabetes Non morbid obesity Bilateral plantar fasciitis Nasal congestion SOB (shortness of breath) KRISTEN (obstructive sleep apnea) HEPATITIS C ANTIBODY Routine 03/25/2018 4:18 PM EST Essential hypertension, benign COLONOSCOPY Routine 10/31/2017 from Last 3 Months or Most Recently Relevant to Health Maintenance Results * REFERRAL SCANNED DOCUMENT (04/07/2024 3:00 AM EST) 04/07/2024 3:00 AM EST Lyssa Estrada PA-C SCAN REFERRAL Final Result * TSH W/RFLX FREE T4 (01/16/2023 2:56 PM EDT) TSH W/REFLEX TO FT4 0.55 0.40 - 4.50 mIU/L [employer] [facility] Blood Blood / Unknown 01/16/2023 2 :56 PM EDT 01/16/2023 2:56 PM EDT Lyssa Estrada PA-C LAB - BLOOD DRAW Edited Resu lt - Final [employer] [facility] [address] [address], [employer] [facility] [address] [place] [address] * (ABNORMAL) LIPID PANEL (01/16/2023 2:56 PM EDT) Pathologist [facility] [place] CHOLESTEROL, TOTAL 96 <200 mg/dL [employer] [facility] HDL CHOLESTEROL 29(L) > OR = 40 mg/dL [employer] TRIGLYCERIDES 199(H) <150 mg/dL [employer] LDL-CHOLESTEROL 40 99 mg/dL (calc) [employer] Comment: Reference range: <100 Desirable range <100 mg/dL for primary prevention; ?? <70 mg/dL for patients with CHD or diabetic patients with > or = 2 CHD risk factors. LDL-C is now calculated using the Meghan calculation, which is a validated novel method providing better accuracy than the Friedewald equation in the estimation of LDL-C. Eduardo CORDERO et al. SAURABH. 2013;310(19): 7981-8787 (http://education.Nestio/faq/MDB769) CHOL/HDLC RATIO 3.3 <5.0 (calc) [facility] NON-HDL CHOLESTEROL 67 <130 mg/dL (calc) [facility] Comment: For patients with diabetes plus 1 major ASCVD risk factor, treating to a non-HDL-C goal of <100 mg/dL (LDL-C of <70 mg/dL) is considered a therapeutic option. Blood Blood / Unknown 01/16/2023 2 :56 PM EDT 01/16/2023 2:56 PM EDT us Lyssa Estrada PA-C LAB - BLOOD DRAW Final Resul t [employer] [address] [address], [employer] [facility] [address] [place] [address] * (ABNORMAL) COMPREHENSIVE METABOLIC PANEL (01/16/2023 2:56 PM EDT) Pathologist [facility] [place] GLUCOSE 94 65 - 99 mg/dL [employer] [facility] Comment: ?Fasting reference interval UREA NITROGEN (BUN) 19 7 - 25 mg/dL [employer] [facility] CREATININE (blood) 1.32(H) 0.70 - 1.28 mg/dL [employer] [facility] EGFR 58(L) > OR = 60 mL/min/1. 73m2 [employer] [facility] BUN/CREATININE RATIO 14 6 - 22 (calc) [employer] [facility] SODIUM 140 135 - 146 mmol/L [employer] [facility] POTASSIUM 3.7 3.5 - 5.3 mmol/L [employer] [facility] CHLORIDE 105 98 - 110 mmol/L [employer] [facility] CARBON DIOXIDE 25 20 - 32 mmol/L [employer] [facility] CALCIUM 9.1 8.6 - 10.3 mg/dL [employer] [facility] PROTEIN, TOTAL 7.1 6.1 - 8.1 g/dL [employer] [facility] ALBUMIN 4.2 3.6 - 5.1 g/dL [employer] [facility] GLOBULIN 2.9 1.9 - 3.7 g/dL (calc) [employer] [facility] ALBUMIN/GLOBULI N RATIO 1.4 1.0 - 2.5 (calc) [employer] [facility] BILIRUBIN, TOTAL 0.7 0.2 - 1.2 mg/dL [employer] [facility] ALKALINE PHOSPHATASE 75 35 - 144 U/L [employer] [facility] AST 24 10 - 35 U/L [employer] [facility] ALT 26 9 - 46 U/L [employer] [facility] Blood Blood / Unknown 01/16/2023 2 :56 PM EDT 01/16/2023 2:56 PM EDT us Lyssa Estrada PA-C LAB - BLOOD DRAW Edited Resu lt - Final [employer] [address] [address], [employer] [address] [address] * HEPATITIS C ANTIBODY (03/25/2018 4:18 PM EST) HEPATITIS C VIRUS SCREEN NEGATIVE NEGATIVE [facility] Blood specimen (specimen) Blood / Unknown 03/25/2018 4:18 PM EST 03/25/2018 6:49 PM EST Narrative [facility] - 03/25/2018 9:20 PM EST [employer], a member of [facility] [address] [place] [address] Automotive Glass Technician - Yanelis Nguyen MD PT ID [id number] ORD# [id number] Lyssa Estrada PA-C LAB - BLOOD DRAW Final Resul t [facility] [address] [place] [address], * COLONOSCOPY (10/31/2017) 10/31/2017 Impressions Cathryn Mendes [place] - 10/31/2017 Grade 3 internal hemorrhoids. Colon otherwise normal to Terminal Ileum including retroflexion. Abdominal digital rectal exam ( hemorrhoids). Colonoscopy in 7 years. Provider Ochin PROCEDURES Final Result from Last 3 Months or Most Recently Relevant to Health Maintenance Insurance [place] Care Teams Frame Welder Cargo Utility Trailers Relationship Specialty Start Date End Date Lyssa Estrada PA-C [address] [place] [address] PCP - General Internal Medicine 08/20/15
== END 2024-07-01 06:18 | disposition home or self-care (01) ==
LOC: CF 06:17
PROVIDERS: Visit Provider Anesthesiology
DX: M48.062 Spinal stenosis, lumbar region with neurogenic claudication (principal)
CPT/HCPCS: 62323; J2003; J3301; Q9967

== ENCOUNTER 2024-07-01 08:34 | Outpatient (AMB) | payer MEDICARE, MEDICAID, SELFPAY ==
[2024-07-01 08:39] VITALS: BP 140/71; PULSE 67; O2SAT 93
--- NOTE | 2024-07-01 08:39 | MHC.OFFVIS ---
Vital Signs 07/01/24 08:39 07/01/24 09:31 BP 140/71 H 147/93 H Blood Pressure Location Lt brachial Lt brachial Position Sitting Sitting Pulse 67 60 Pulse Source Pulse Oximeter Pulse Oximeter Pulse Oximetry (%) 93 95 Oxygen Delivery Method Room Air Room Air Comment Pre-Op Post-Op Intake Visit Reasons: L5, S1 INTERLAMINAR PETEY Allergies No Known Allergies Allergy (Verified 04/07/24 08:55) PFSH Medical History Pre-diabetes HTN (hypertension) Hand arthritis Bilateral knee pain Lumbar radiculopathy Chronic low back pain Constipation Surgical History H/O hemorrhoidectomy History of nasal surgery (~2023) Social History Alcohol intake: never Patient Tobacco Use Status: Never used Tobacco Physical Exam Vital Signs: Last Vital Signs Pulse 60 07/01/24 09:31 BP 147/93 H 07/01/24 09:31 Pulse Ox 95 07/01/24 09:31 Oxygen Delivery Method Room Air 07/01/24 09:31 Assessment & Plan Assessment & Plan (1) Bilateral knee pain: Comment: Receives cortisone and gel injections at [facility] Code(s): M25.561 - Pain in right knee; M25.562 - Pain in left knee Category: Medical (2) Constipation: Code(s): K59.00 - Constipation, unspecified Category: Medical (3) Lumbosacral spondylosis: Code(s): M47.817 - Spondylosis without myelopathy or radiculopathy, lumbosacral region Category: Medical (4) Lumbar radiculopathy: Code(s): M54.16 - Radiculopathy, lumbar region Category: Medical (5) Lumbar degenerative disc disease: Code(s): M51.369 - Other intervertebral disc degeneration, lumbar region without mention of lumbar back pain or lower extremity pain Category: Medical (6) Spinal stenosis, lumbar region with neurogenic claudication: Code(s): M48.062 - Spinal stenosis, lumbar region with neurogenic claudication Category: Medical Plan L5-S1 Interlaminar PETEY . Informed consent was thoroughly explained to the patient before the procedure.? The patient came to the operating room.? He was positioned prone on operating table with a pillow under her abdomen.? Time-out was performed delineating correct site and side of the procedure, nature of the injection, name and date of of the patient. The lower back and upper buttocks of the patient was prepped with ChloraPrep and draped with sterile utility towels.? C-arm was brought over the operating field and sq picture of L5 and S1 vertebra were delineated on the screen. Interlaminar space between L5 and S1 was chosen as the target of the injection. Projection of the right S1 lamina to the screen was chosen as the target initially. Injection of the local anesthetic mixture of lidocaine 2% and ropivacaine 0.5% in the projection of the upper border of the most central portion of the lamina was demonstrated on the screen. After that 20 gauge Touhy needle was inserted through the skin wheal and was advanced to were the epidural space on anterior posterior and lateral views. Loss of resistance to air technique was used locate the epidural space. Unfortunately on this side of the epidural space the epidural needle inadvertently went into a intrathecal space and CSF appeared in the hub of the needle. The needle was withdrawn and the procedure was repeated on the left side , using left upper border of the lamina as the target this time. When loss of resistance was felt on this side on anterior posterior and lateral views injection of the contrast was performed demonstrating epidurogram. After that injection of the treatment solution of lidocaine 0.5% 4 cc mixed with Kenalog 40 mg was performed into the needle. Upon completion of the injection the needle was removed and sterile Band-Aid was applied. Patient tolerated the procedure well. He did not report any headache. Treatment of post dural puncture headache was explained to the patient. Orders: Orders FL guidance in treatment room Today M48.062 - Spinal stenosis, lumbar region with neurogenic claudication Coding Level of Care Code Procedure Only Diagnoses Bilateral knee pain M25.561; M25.562 Constipation K59.00 Lumbosacral spondylosis M47.817 Lumbar radiculopathy M54.16 Lumbar degenerative disc disease M51.369 Spinal stenosis, lumbar region with neurogenic claudication M48.062
--- OUTSIDE RECORDS SUMMARY | 2024-07-01 09:05 | XMS_ITS | Encounter Summary ---
Author Organization [facility] Address [address] [place] [address] Care Team Providers Care Real Estate Closer Name Role Phone Lyssa Estrada PA-C Primary Care Provider [phone] Encounter Details Date Type Department Care Team (Late st Contact Info) Description 01/08/2015 Interim Notes [facility] [address] [place] [address] Kadie Stevens NP [address] [facility] [place], [place] [id number] Refugee health examination Social History Tobacco Use [...] ANTIGEN, EIA NEGATIVE FOR GIARDIA LAMBLIA ANTIGEN [facility] Stool specimen (specimen) Stool specimen / Unknown 01/08/2015 01/08/2015 9:14 PM EDT Narrative [facility] - 01/09/2015 12:11 AM EDT [employer] [address] [place] [address] PT ID [id number] ORD# [id number] SOURCE: STOOL; Kadie Stevens NP LAB - BLOOD DRAW Final Result [facility] [employer] [facility] [address] [place] [address], documented in this encounter Visit Diagnoses Diagnosis Refugee health examination Health examination of defined subpopulation documented in this encounter Care Teams Real Estate Closer Relationship Specialty Start Date End Date Lyssa Estrada PA-C [address] [place] [phone] PCP - General Internal Medicine 08/20/15 documented as of this encounter
--- OUTSIDE RECORDS SUMMARY | 2024-07-01 09:05 | XMS_ITS | Clinical Summary ---
Author Organization [facility] Address [address] [place] [address] Care Team Providers Care Rn Orthopaedics Name Role Phone Lyssa Estrada PA-C Primary Care Provider [phone] Source Comments PLEASE NOTE, if this patient [...] % nasal sprayIndications: Nasal congestion Place 1 [place] into the nostril(s) as needed for congestion [...] October 08, 2017 13:42 EDT Encounter info: [id number], [facility], Office Visit, 10/08/2017 - 10/15/2017 Colorectal Office Visit Patient: TOVA WELLS Age: 66 years Sex: Male : 1950 Associated Diagnoses: None Author: Ahsan Flowers MD History: Mr. Wells is a 66 year old Slovak-speaking male who presents for evaluation of constipation and hemorrhoids . He tells me that he had undergone hemorrhoidectomy over 20 years ago while living in [place] [facility]. He has had constipation since that time. [...] ago Excisional hemorrhoidectomy [address] [place] 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 Wells that the [...] on April 05, 2016 11:03 Encounter info: [id number], [facility], One Time OP, 04/05/2016 - 04/05/2016 Contributor system: [facility] * Final Report * Echo Complete-Doppler, Colorflow, M-Mode Transthoracic Echocardiography Report (TTE) Patient Demographics Patient Name TOVA WELLS Date of Study 04/05/2016 Corporate Gender Male Facility Race Ethnicity Date of 1950 Height: 70.08 inches Age 65 year(s) Weight: 255.74 pounds Accession Number [id number] BSA: 2.32 m2 Room Number BMI: 36.61 kg/m2 Referring Physician Marguerite OLIVARES Interpreting Physician Madison Bajwa MD General Farmworker Helen Conklin [facility] Indications Hypertension. Clinical History Hypertension. Hyperlipidemia. KRISTEN [...] Lateral Velocity: 6.58 cm/s E/Med E':7.104 E/Lat E':6.22229 Cardiac Anatomy Left Ventricle/Interventricular Septum The left [...] on March 03, 2016 15:40 Encounter info: [id number], [facility], Discharged OutPatient, 03/03/2016 - 03/03/2016 Sleep Consultation Patient: TOVA WELLS Age: 65 years Sex: Male : 1950 Associated Diagnoses: None Author: Raphael Stevens MD Asked to evaluate re sleep apnea by Marguerite Estrada. Slovak speaking, with historian research assistant and RIG SUPERVISOR (Marva). 65 yo male with obesity, HTN, HLD, prior kidney stones, and hx sleep studies about a year ago. Reports two sleep studies at [facility] about a year ago, second with mask . Reports was given a mask which he tried using at home (without a PAP device), but breathing was worse with the mask, so he stopped using. He was never given a PAP device. Called [facility], which faxed PSG reports. 03/29/15 PSG [...] from PAP therapy 2. 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 PAP therapy had not been explained to him after prior PSG, and he had tried using mask without PAP 4. obesity, HTN, HLD, prior kidney stones Recommend: 1. Spent much time with patient discussing KRISTEN, CPAP, benefits of CPAP, sleep study results - with patient and RIG SUPERVISOR 2. ordered AutoCPAP 11-16 from [facility] with nasal mask; [facility] to call his RIG SUPERVISOR to help arrange 3. ordered TSH - came back 11.41, c/w hypothyroid; should start levothyroxine; will ask Marguerite Diamond to confirm starting treatment 4. recommended sleep side, not back, and weight loss 5. RTC 3 months - assess compliance/benefit of PAP then 60 minutes with patient, majority compliance counsel and coordination of care Impression and Plan [...] exists Depression Annual Screen 05/07/2024 09/05/2023, 08/05 [id number] ( season) 2024 Postponed from 01/06/2024 (Patient [...] TO FT4 0.55 0.40 - 4.50 mIU/L [employer] [facility] Blood Blood / Unknown 01/16/2023 2 :56 PM EDT 01/16/2023 2:56 PM EDT Lyssa Estrada PA-C LAB - BLOOD DRAW Edited Resu lt - Final [employer] [facility] [address] [address], [employer] [facility] [address] [place] [address] * (ABNORMAL) LIPID PANEL (01/16/2023 2:56 PM EDT) Pathologist [facility] CHOLESTEROL, TOTAL 96 <200 mg/dL [employer] [facility] HDL CHOLESTEROL 29(L) > OR = 40 mg/dL [employer] TRIGLYCERIDES 199(H) <150 mg/dL [employer] LDL-CHOLESTEROL 40 99 mg/dL (calc) [employer] Comment: Reference range: <100 Desirable range <100 mg/dL for primary prevention; ?? <70 mg/dL for patients with CHD or diabetic patients with > or = 2 CHD risk factors. LDL-C is now calculated using the Meghan calculation, which is a validated novel method providing better accuracy than the Friedewald equation in the estimation of LDL-C. Eduardo CORDERO et al. SAURABH. 2013;310(19): 2574-3903 (http://education.Netmining/faq/ZKB214) CHOL/HDLC RATIO 3.3 <5.0 (calc) [employer] NON-HDL CHOLESTEROL 67 <130 mg/dL (calc) [employer] Comment: For patients with diabetes plus 1 major ASCVD risk factor, treating to a non-HDL-C goal of <100 mg/dL (LDL-C of <70 mg/dL) is considered a therapeutic option. Blood Blood / Unknown 01/16/2023 2 :56 PM EDT 01/16/2023 2:56 PM EDT us Lyssa Estrada PA-C LAB - BLOOD DRAW Final Resul t [employer] [address] [address], [employer] [facility] [address] [place] [address] * (ABNORMAL) COMPREHENSIVE METABOLIC PANEL (01/16/2023 2:56 PM EDT) Pathologist [facility] GLUCOSE 94 65 - 99 mg/dL [employer] [facility] Comment: ?Fasting reference interval UREA NITROGEN (BUN) 19 7 - 25 mg/dL [employer] [facility] CREATININE (blood) 1.32(H) 0.70 - 1.28 mg/dL [employer] [facility] EGFR 58(L) > OR = 60 mL/min/1. 73m2 [employer] [facility] BUN/CREATININE RATIO 14 6 - 22 (calc) [employer] [facility] SODIUM 140 135 - 146 mmol/L [employer] [facility] POTASSIUM 3.7 3.5 - 5.3 mmol/L [employer] [facility] CHLORIDE 105 98 - 110 mmol/L [employer] [facility] CARBON DIOXIDE 25 20 - 32 mmol/L [employer] [facility] CALCIUM 9.1 8.6 - 10.3 mg/dL [employer] [facility] PROTEIN, TOTAL 7.1 6.1 - 8.1 g/dL [employer] [facility] ALBUMIN 4.2 3.6 - 5.1 g/dL [employer] [facility] GLOBULIN 2.9 1.9 - 3.7 g/dL (calc) [employer] [facility] ALBUMIN/GLOBULI N RATIO 1.4 1.0 - 2.5 (calc) [employer] [facility] BILIRUBIN, TOTAL 0.7 0.2 - 1.2 mg/dL [employer] [facility] ALKALINE PHOSPHATASE 75 35 - 144 U/L [employer] [facility] AST 24 10 - 35 U/L [employer] [facility] ALT 26 9 - 46 U/L [employer] [facility] Blood Blood / Unknown 01/16/2023 2 :56 PM EDT 01/16/2023 2:56 PM EDT us Lyssa Estrada PA-C LAB - BLOOD DRAW Edited Resu lt - Final [employer] [address] [address], [employer] [address] [address] * HEPATITIS C ANTIBODY (03/25/2018 4:18 PM EST) HEPATITIS C VIRUS SCREEN NEGATIVE NEGATIVE [facility] Blood specimen (specimen) Blood / Unknown 03/25/2018 4:18 PM EST 03/25/2018 6:49 PM EST Narrative [facility] - 03/25/2018 9:20 PM EST [employer], a member of [facility] [address] [place] [address] Planning Manager - Yanelis Nguyen MD PT ID [id number] ORD# [id number] Lyssa Estrada PA-C LAB - BLOOD DRAW Final Resul t [facility] [address] [place] [address], * COLONOSCOPY (10/31/2017) 10/31/2017 Impressions Cathryn Mendes [place] - 10/31/2017 Grade 3 internal hemorrhoids. Colon otherwise normal to Terminal Ileum including retroflexion. Abdominal digital rectal exam ( hemorrhoids). Colonoscopy in 7 years. Provider [employer] PROCEDURES Final Result from Last 3 Months or Most Recently Relevant to Health Maintenance Insurance [place] Care Teams Rn Orthopaedics Relationship Specialty Start Date End Date Lyssa Estrada PA-C [address] [place] [address] PCP - General Internal Medicine 08/20/15
--- OUTSIDE RECORDS SUMMARY | 2024-07-01 09:05 | XMS_ITS | Clinical Summary ---
Author Organization [employer] Address [address] [facility] [address] [place] [address] Care Team Providers Care Unloader Operator Name Role Phone Unavailable Primary Care Provider [...] Most Recently Relevant to Health Maintenance Insurance [facility] MEDICAID STAND ADULT
--- OUTSIDE RECORDS SUMMARY | 2024-07-01 09:06 | XMS_ITS | Encounter Summary ---
Author Organization [facility] Address [address] [place] [address] Care Team Providers Care Pantry Goods Worker Name Role Phone Lyssa Estrada PA-C Primary Care Provider [phone] Encounter Details Date Type Department Care Team (Late st Contact Info) Description 01/08/2015 Interim Notes [facility] [address] [place] [id number] Kadie Stevens NP [address] [facility] [place], [place] [phone] Refugee health examination (Primary Dx) Social History [...] ANTIGEN, EIA NEGATIVE FOR GIARDIA LAMBLIA ANTIGEN [facility] Stool specimen (specimen) Stool specimen / Unknown 01/08/2015 01/08/2015 9:14 PM EDT Narrative [facility] - 01/09/2015 12:11 AM EDT [employer] [address] [place] [address] PT ID [id number] ORD# [id number] SOURCE: STOOL; Kadie Stevens NP LAB - BLOOD DRAW Final Result [facility] [address] [place] [address], documented in this encounter Visit Diagnoses Diagnosis Refugee health examination- Primary Health examination of defined subpopulation Refugee health examination Health examination of defined subpopulation documented in this encounter Care Teams Pantry Goods Worker Relationship Specialty Start Date End Date Lyssa Estrada PA-C [address] [place] [address] PCP - General Internal Medicine 08/20/15 documented as of this encounter
[2024-07-01 09:31] VITALS: BP 147/93; PULSE 60; O2SAT 95
== END 2024-07-01 09:31 | disposition home or self-care (01) ==
LOC: HO.PMCPRC 08:34
PROVIDERS: PCP Physician Assistant; Visit Provider Anesthesiology
DX: M54.16 Radiculopathy, lumbar region (principal)
CPT/HCPCS: 62323

== ENCOUNTER 2024-07-22 09:52 | Outpatient (AMB) | payer MEDICARE, MEDICAID, SELFPAY ==
--- NOTE | 2024-07-22 09:55 | MHC.OFFVIS ---
Vital Signs 07/22/24 09:59 Height 6 ft Weight 279 lb 4 oz BMI 37.9 BP 136/74 Blood Pressure Location Lt brachial Position Sitting Pulse 68 Pulse Source Pulse Oximeter Pulse Oximetry (%) 97 Oxygen Delivery Method Room Air Intake Visit Reasons: L5, S1 INTERLAMINAR PETEY Printed Circuit Board Panels Trimmer Required: Yes Printed Circuit Board Panels Trimmer Language: Venezuelan Printed [employer] Board Panels Trimmer Services: [employer] Board Panels Trimmer Offered & Declined Printed Circuit Board Panels Trimmer Name: Provider is fluent in [place]an Accompanied by: Daughter Allergies No Known Allergies Allergy (Verified 07/22/24 10:00) HPI Comments Details: The patient is a 73-year-old male presenting with a follow-up for lumbar radiculopathy and management of chronic pain. He previously received an interlaminar epidural steroid injection at the L5-S1 level, aimed at alleviating lumbar radiculopathy and pain stemming from disc degeneration, arthritis, and spinal stenosis, particularly severe at L5-S1. The injection provided mild to moderate relief, with current pain levels still significant. The patient reports continuous lower extremity discomfort, as well as severe back pain associated with bending and backwards extension movements. He also experiences right knee pain affecting mobility. Conservative treatments, such as Tylenol and lidocaine patches, have been partially effective, with the patient avoiding NSAIDs like Ibuprofen per his PCP recommendations. Reports previous gel and cortisone injections with partial relief. He is interested to address his right knee pain and continue monitor back symptoms for next few months. Denies any recent cough, cold, infection, fever or other significant changes in medical history since last office visit. - Affect: Chronic pain affects functionality and mobility, especially when bending and walking. - Analgesia: Uses Tylenol and lidocaine patches, with avoidance of Ibuprofen due to medical considerations; reports partial relief. - Adverse Effects: No reported adverse effects directly related to pain management medications. - Activities of Daily Living: Pain hinders ambulation, stair navigation, and sleeping unless stationary; knee pain adds to mobility issues. - Aberrant Drug-Related Behaviors: None reported; patient uses prescribed medications as needed. Past Procedures: 07/01/24: L5-S1 Interlaminar PETEY-50% ongoing pain relief PRIOR: Patient presents today for follow up today to discuss recent lumbar spine MRI results. He continues to endorse low back pain with radiculopathy, both legs, worse on the left. Pain radiates into his buttocks and into lower calves and ankles with numbness and tingling. He also reports bilateral knee pain and is interested in therapeutic injections for both pain generators, initially for back pain. His mobility and functioning has been significantly limited due to pain. Reports increase low back and left leg pain with coughing or bowel movements when straining. Recent bilateral lower extremities US was negative for DVT. Lumbar spine MRI is noted below and was reviewed with patient and family today. Patient is hesitant towards back surgery but will consider Neurosurgical evaluation if no pain relief or function improvement with injection. Denies any fever or chills, abdominal or groin pain, foot drop, bladder or bowel dysfunction or saddle anesthesia. PRIOR: Patient is a pleasant 73-year-old male with a history of chronic low back pain, left lumbar radiculopathy, bilateral knee pain, hand arthritis, who presents today for initial evaluation of acute on chronic low back pain with radicular symptoms. Patient is accompanied by his grand-daughter. Printed Circuit Board Panels Trimmer not utilized today, provider is fluent in [place]an. Denies any specific trauma, injury or inciting events. Reports history of mechanical fall a few months ago which increased his right knee pain. 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 Back pain is axial and also radiates into bilateral lower extremities posteriorly and into his feet. Reports significant cramping and tenderness in his calves and upper inner thighs, worse on the left. Denies previous spine surgery or injections. He is followed at [facility] for knee and hand arthritis and regularly receives cortisone and gel knee injections. Back pain is aggravated by walking, twisting, bending, climbing stairs, weight bearing, changing positions and partially relieved with rest, Tylenol, topical applications, and heat therapy. Patient reports he takes gabapentin for gout in his feet and it helps with leg cramping. He completed a course of physical therapy and massages without any improvement. Patient reports recently stopped swimming due to increased pain. Pain affects his daily activities and functioning, mobility, sleep, and recreational activities. Denies any fever or chills, abdominal or groin pain, foot drop, bladder or bowel dysfunction or saddle anesthesia. Reports left lower extremity weakness due to pain. Ambulates with mildly antalgic gait with the use of cane. Oswestry low back disability score =27 (severe disability) Location: Lower back radiates down bilateral legs, worse on the left Duration: Chronic pain for many years, worsening for past 1-2 years Characteristics of symptom or complaint: Aching, tingling, pins and needles, shooting, pulling, cramping Aggravating or associated factors: Movements, climbing stairs, bending, standing, walking, cold weather Relieving factors: Stretching, Tylenol, IcyHot, lidocaine patches, heat, rest Treatment: PT, back brace, massages, aqua therapy, cane, knee injections PFSH Medical History Pre-diabetes HTN (hypertension) Hand arthritis Bilateral knee pain Lumbar radiculopathy Chronic low back pain Constipation Surgical History H/O hemorrhoidectomy History of nasal surgery (~2023) Social History Alcohol intake: never Patient Tobacco Use Status: Never used Tobacco Review of Systems Const All systems reviewed & are unremarkable except as noted in HPI and below Physical Exam Vital Signs: Last Vital Signs Pulse 68 07/22/24 09:59 BP 136/74 07/22/24 09:59 Pulse Ox 97 07/22/24 09:59 Oxygen Delivery Method Room Air 07/22/24 09:59 BMI result Body Mass Index 37.9 General: Appears afebrile. Alert and oriented. Mood and affect appropriate. Follows and participates in conversation appropriately. Respiratory effort is unlabored. No cough. Able to transition from sit to stand unassisted. Uses cane with ambulation. Ambulates with bilaterally normal heel strike and toe off, reports increase in pain with toe standing, worse on the left. General: Yes no CVA tenderness Back/Spine/Pelvis Other: Limited lumbar ROM due to pain. Antalgic gait with mild limping, uses cane with ambulation. Lumbar extension and flexing forward reproduces moderate pain. 2+ pedal pulses bilaterally. Straight leg rise with dorsiflexion positive on the left. Diminished patellar and achilles reflexes bilaterally. Facet loading test positive bilaterally. Waqar sign positive bilaterally, Dane?s reproduces lateral hip pain bilaterally, Pelvic compression and Stinchfield tests are negative bilaterally. No groin pain with I/E hip rotations. Valsalva maneuver is negative. Back: no CVA tenderness Cervical Spine: cervical muscular tenderness and No Cervical spine tenderness Thoracic/Lumbar Spine: thoracic and lumbar spine normal to inspection, No Thoracic/lumbar spine scar(s), Lasegue's sign positive (localized on the left, diffuse on the right) bilateral, pain with thoraco-lumbar ROM, paraspinal muscle tenderness on the left greater than right, thoraco-lumbar ROM limited, No thoracic spinal tenderness and lumbar spinal tenderness (L3-S1) Pelvis: no buttock tenderness and sciatic notch tenderness on the left Sacroiliac joints: bilaterally tender to palpation Extrem Right lower extremity: knee (Limited ROM due to pain) Details: normal to inspection, tenderness Location: of the medial joint line and of the lateral joint line and crepitus; no swelling, no ecchymosis, no deformity and no unusual warmth Left lower extremity: knee (Limited ROM due to pain) Details: normal to inspection, tenderness Location: of the patella, of the medial joint line and of the lateral joint line and crepitus; no ecchymosis, no deformity and no unusual warmth Results Reviewed Results Reviewed: MR SPINE LUMBAR without CONTRAST 03/24/24 at [facility] INDICATION: Radiculopathy, lumbar region. Intervertebral disc degeneration. TECHNIQUE: Unenhanced multiplanar, multisequence MR imaging of the lumbar spine. COMPARISON: None Available. FINDINGS: Normal lumbar alignment is demonstrated. Vertebral heights are well maintained. Bone marrow signal is within normal limits, and no suspicious osseous lesion is identified. Conus medullaris is unremarkable. There is multilevel disc desiccation and disc space narrowing. There is minimal bone marrow edema in the L2 vertebral body suggesting mild type I Modic endplate changes. There is 1 to 2 mm retrolisthesis of L2 on L3 and L3 on L4. Paraspinal soft tissues and visualized portions of the abdomen and pelvis are unremarkable. Bilateral renal cysts are demonstrated. At L1-2 there is mild annular disc bulge and mild facet arthrosis. Central canal is patent. There is moderate right and mild left neural foraminal stenosis. At L2-3 there is mild annular disc bulge and left foraminal small disc protrusion mild facet arthrosis. There is mild narrowing of the left lateral recess. There is mild/moderate right and moderate to advanced left neural foraminal stenosis. At L3-4 there is broad-based disc bulge and mild to moderate facet arthrosis. There is moderate central canal stenosis with advanced bilateral neural foraminal stenosis.. At L4-5 there is broad-based disc bulge and moderate to advanced facet arthrosis greater on the left. There is moderate to advanced central canal stenosis with advanced bilateral neural foraminal stenosis. At L5-S1 there is broad-based disc bulge and central disc protrusion. There is moderate to advanced central canal and right greater than left lateral recess stenosis with contact of the descending right S1 nerve root. There is advanced high-grade bilateral neural foraminal stenosis. IMPRESSION: Multilevel significant degenerative changes of the lumbar spine. Varying degrees of central canal or neural foraminal stenosis greater at L5-S1 with advanced high-grade bilateral neural foraminal stenosis. Less pronounced findings as described. US TRIPLEX LOWER EXTREMITY, BILATERAL 03/14/24 at [facility] CLINICAL INFORMATION: Pain in right lower leg FINDINGS: Respiratory variation, normal compression and augmented flow are noted throughout the bilateral lower extremities. The visualized common femoral vein, superficial femoral vein, profunda femoral vein, popliteal vein and midcalf peroneal and posterior tibial venous segments show no evidence of deep venous thrombosis bilaterally. There is no Valdes's cyst. IMPRESSION: No evidence of deep venous thrombosis involving the bilateral lower extremities. Assessment & Plan Assessment & Plan (1) Bilateral knee pain: Comment: Receives cortisone and gel injections at [facility] Code(s): M25.561 - Pain in right knee; M25.562 - Pain in left knee Category: Medical (2) Lumbosacral spondylosis: Code(s): M47.817 - Spondylosis without myelopathy or radiculopathy, lumbosacral region Category: Medical (3) Lumbar radiculopathy: Code(s): M54.16 - Radiculopathy, lumbar region Category: Medical (4) Lumbar degenerative disc disease: Code(s): M51.369 - Other intervertebral disc degeneration, lumbar region without mention of lumbar back pain or lower extremity pain Category: Medical (5) Spinal stenosis, lumbar region with neurogenic claudication: Code(s): M48.062 - Spinal stenosis, lumbar region with neurogenic claudication Category: Medical (6) Osteoarthritis of right knee: Code(s): M17.11 - Unilateral primary osteoarthritis, right knee Category: Medical Plan Patient reports 50% ongoing pain relief following L5-S1 Interlaminar PETEY with partial improvement in his daily activities and functioning. He continues to experience spinal stenosis related pain with axial and discogenic pain components. At this time, patient reports his bilateral knee pain has been increasing, worse on the right and he would like to address this next. Schedule diagnostic right saphenous nerve block with local and US guidance for potential Sprint PNS trial. Expectations, risks and benefits were reviewed. Patient is aware he will be contacted to schedule this procedure. Patient was reminded to complete bilateral knee xray to assess degree of arthritis. All questions were answered and the patient is in agreement of plan. Follow-up after injections and sooner as needed. Patient and family were informed and verbally consented to the use of an ambient scribe for clinic note documentation during this visit. Patient Instructions: - Continue using Tylenol and lidocaine patches as needed for pain relief. - Patient will avoid certain movements that may exacerbate back pain, and take precautions. - Speak with insurance to understand coverage for planned procedures, including the saphenous nerve block. Unfortunately, his insurance does not cover genicular RFA. - Monitor mobility, especially when navigating stairs, and report any significant changes in pain. Coding Level of Care Code Est Pt Level 4 (17624) Complex EM visit Add On G2211 Diagnoses Bilateral knee pain M25.561; M25.562 Lumbosacral spondylosis M47.817 Lumbar radiculopathy M54.16 Lumbar degenerative disc disease M51.369 Spinal stenosis, lumbar region with neurogenic claudication M48.062 Osteoarthritis of right knee M17.11
[2024-07-22 09:59] VITALS: BP 136/74; PULSE 68; O2SAT 97; BMI 37.9
--- OUTSIDE RECORDS SUMMARY | 2024-07-22 11:02 | XMS_ITS | Encounter Summary ---
Author Organization [facility] Address [address] [place] [address] Care Team Providers Care Tub Rider Name Role Phone Lyssa Estrada PA-C Primary Care Provider Encounter Details Date Type Department Care Team (Late st Contact Info) Description 01/08/2015 Interim Notes [facility] [address] [place] [phone] Kadie Stevens NP [address] [facility] [place], [place] [phone] Refugee health examination Social History Tobacco Use [...] as of this encounter Plan of Treatment Upcoming Encounters Date Type Department Care Team (Late st Contact Info) Description 08/06/2024 2:40 PM EDT Office Visit [facility] [address] [place] [phone] Lyssa Estrada PA-C [address] [place] [phone] documented as of this encounter Procedures Procedure Name Priority Date/Time Associated Diagnosis Comments GIARDIA ANTIGEN Routine 01/08/2015 12:00 AM EDT Refugee health examination documented in this encounter Results * GIARDIA ANTIGEN (01/08/2015 12:00 AM EDT) GIARDIA ANTIGEN, EIA NEGATIVE FOR GIARDIA LAMBLIA ANTIGEN [facility] Stool specimen (specimen) Stool specimen / Unknown 01/08/2015 01/08/2015 9:14 PM EDT Narrative [facility] - 01/09/2015 12:11 AM EDT [facility] [employer] [address] [place] [address] PT ID [id number] ORD# [id number] SOURCE: STOOL; Kadie Stevens NP LAB - BLOOD DRAW Final Result [facility] [address] [place] [address], documented in this encounter Visit Diagnoses Diagnosis Refugee health examination Health examination of defined subpopulation documented in this encounter Care Teams Tub Rider Relationship Specialty Start Date End Date Lyssa Estrada PA-C [address] [place] [phone] PCP - General Internal Medicine 08/20/15 documented as of this encounter
--- OUTSIDE RECORDS SUMMARY | 2024-07-22 11:02 | XMS_ITS | Encounter Summary ---
Author Organization [facility] Address [address] [place] [address] Care Team Providers Care Bereavement Coordinator Name Role Phone Lyssa Estrada PA-C Primary Care Provider Encounter Details Date Type Department Care Team (Late st Contact Info) Description 01/08/2015 Interim Notes [facility] [address] [place] [phone] Kadie Stevens NP [address] [facility] [place], [place] [phone] Refugee health examination (Primary Dx) Social History [...] 08/06/2024 2:40 PM EDT Office Visit [facility] [address] [place] [phone] Lyssa Estrada PA-C [address] [place] [phone] documented as of this encounter Results * GIARDIA ANTIGEN (01/08/2015 12:00 AM EDT) GIARDIA ANTIGEN, EIA NEGATIVE FOR GIARDIA LAMBLIA ANTIGEN [facility] Stool specimen (specimen) Stool specimen / Unknown 01/08/2015 01/08/2015 9:14 PM EDT Narrative [facility] 01/09/2015 12:11 AM EDT [employer] [facility] [employer] [address] [place] [address] PT ID [id number] ORD# [id number] SOURCE: STOOL; Kadie Stevens [employer]LE[employer] REFINING EQUIPMENT OPERATOR LAB - BLOOD DRAW Final Result [facility] [address] [place] [address], documented in this encounter Visit Diagnoses Diagnosis Refugee health examination- Primary Health examination of defined subpopulation Refugee health examination Health examination of defined subpopulation documented in this encounter Care Teams Bereavement Coordinator Relationship Specialty Start Date End Date Lyssa Estrada PA-C [address] [place] [phone] PCP - General Internal Medicine 08/20/15 documented as of this encounter
--- OUTSIDE RECORDS SUMMARY | 2024-07-22 11:02 | XMS_ITS | Clinical Summary ---
Author Organization [facility] Address [address] [place] [address] Care Team Providers Care Oil Plant Operator Name Role Phone Lyssa Estrada PA-C Primary Care Provider [phone] Source Comments PLEASE NOTE, if this patient [...] need, dx SI joint dysfunction 1 Each 08/19/19 21 Active cloNIDine (CATAPRES) 0.1 mg/24 hr patchIndications:E ssential hypertension, benign Place 1 Patch onto the skin once a week 4 Patch 3 05/27/19 22 Active caneIndications:Ro nellne general medical examination at a health care facility CANE, See Instructions, # 1 each, Refills 0, Tot. Refills 0, Maintenance, USE CANE NEEDED FOR KNEE PAIN, 02/13/20 12:54:00 EDT, Supply 02/13/20 20 Active triamcinolone acetonide (KENALOG) 0.1 % creamIndications:A topic dermatitis, unspecified type Apply topically 2 (two) times daily 80 g 3 06/21/19 22 Active olmesartan-hydroch lorothiazide (BENICAR HCT) 20-12.5 mg per tablet Take 2 Tablets by mouth once daily 30 Tablet 11 01/17/20 22 Active polyethylene glycol 3350 17 gram/dose powderIndications: Functional constipation Take 17 g by mouth once daily Dissolve in a glass (8 oz) of water. 850 g 5 01/21/20 22 Active esomeprazole magnesium (NEXIUM) [address] capsuleIndications :Dyspepsia Take 1 Capsule by mouth every morning before breakfast 90 Capsule 3 01/21/20 22 Active fluticasone (FLONASE) 50 mcg/actuation nasal sprayIndications:R hinorrhea INSTILL 2 SPRAYS INTO BOTH NOSTRILS ONCE DAILY 07/18/19 23 Active MISCELLANEOUS MEDICAL SUPPLY MISCIndications:Bi lateral plantar fasciitis,Gouty arthropathy by miscellaneous route daily. 4 wheel walker with bench and brake, disp1, lifetime need, dx osteoarthritis/sabine mbar disc disease 1 Each 01/17/20 23 Active MISCELLANEOUS MEDICAL SUPPLY MISCIndications:Bi lateral plantar fasciitis,Gouty arthropathy by miscellaneous route daily. Heel cups for bilateral plantar fasciitis, disp1 pair, dx bilateral plantar fasciitis 2 Each 01/17/20 23 Active sodium chloride (OCEAN) 0.65 % nasal sprayIndications:N indigo congestion Place 1 [place] into the nostril(s) as needed for congestion 44 mL 3 01/17/20 23 Active lidocaine-prilocai ne (EMLA) 2.5-2.5 % creamIndications:E xternal hemorrhoid,Functio nal constipation Apply topically as needed for pain 30 g 1 04/24/20 23 Active witch Mitchel (TUCKS) 50 %Indications:Exter nal hemorrhoid,Functio nal constipation Use tid with bowel movements 100 Each 11 04/24/20 23 Active docusate sodium (COLACE) 100 mg capsuleIndications :Functional constipation Take 2 Capsules by mouth nightly at bedtime 180 Capsule 2 04/24/20 23 Active rosuvastatin (CRESTOR) 10 mg tablet TAKE ONE TABLET BY MOUTH ONCE DAILY AT BEDTIME 90 Tablet 3 07/30/19 24 Active amLODIPine (NORVASC) 10 mg tabletIndications: Essential hypertension, benign,Mixed hyperlipidemia,Cece yancy osteoarthritis involving multiple joints,Gouty arthropathy,Polyne uropathy associated with underlying disease (HCC-CMS),Hypothyr oidism (acquired),Stage 2 chronic kidney disease,Benign prostatic hyperplasia with urinary frequency TAKE ONE TABLET BY MOUTH EVERY DAY 90 Tablet 3 07/30/19 24 Active ibuprofen 600 mg tabletIndications: Gouty arthropathy,Primar y osteoarthritis involving multiple joints Take 1 Tablet by mouth every 8 (eight) hours as needed for pain, headaches, mild pain or moderate pain 90 Tablet 2 09/05/19 24 Active clotrimazole-betam ethasone (LOTRISONE) 1-0.05 % cream APPLY TOPICALLY TWICE DAILY 60 g 11 11/06/19 24 Active omeprazole (PRILOSEC) [address] capsuleIndications :Dyspepsia TAKE ONE CAPSULE BY MOUTH TWICE A DAY 180 Capsule 1 11/21/19 24 Active levothyroxine 125 mcg tabletIndications: Hypothyroidism (acquired) TAKE ONE TABLET BY MOUTH EVERY DAY 90 Tablet 2 03/03/20 24 Active gabapentin (NEURONTIN) 300 mg capsuleIndications :Hypothyroidism (acquired),Essenti al hypertension, benign,Mixed hyperlipidemia,Cece yancy osteoarthritis involving multiple joints,Gouty arthropathy,Polyne uropathy associated with underlying disease ([facility]-CMS),Stage 2 chronic kidney disease,Benign prostatic hyperplasia with urinary frequency TAKE 1 CAPSULE BY MOUTH EVERY 8 HOURS 270 Capsule 1 03/03/20 24 Active tamsulosin (FLOMAX) 0.4 mg 24 hr capsule TAKE ONE CAPSULE BY MOUTH EVERY DAY 90 Capsule 3 03/31/20 24 Active olmesartan-hydroch lorothiazide (BENICAR HCT) 40-25 mg per tablet Take 1 Tablet by mouth once daily 30 Tablet 6 04/01/20 24 Active diclofenac sodium (VOLTAREN) 1 % gel APPLY 4GM TOPICALLY TO THE AFFECTED AREA 4 TIMES DAILY (BEFORE MEALS AND NIGHTLY) 100 g 5 04/07/20 24 Active allopurinoL (ZYLOPRIM) 100 mg tablet Take 1 Tablet by mouth once daily 90 Tablet 2 05/28/19 [address] tabletIndications: Essential hypertension TAKE ONE TABLET BY MOUTH EVERY DAY 90 Tablet 3 06/09/19 25 Active Active Problems Problem Noted Date Diagnosed Date [...] October 08, 2017 13:42 EDT Encounter info: [id number], [facility], Office Visit, 10/08/2017 - 10/15/2017 Colorectal Office Visit Patient: TOVA WELLS Age: 66 years Sex: Male : 1950 Associated Diagnoses: None Author: Ahsan Flowers MD History: Mr. Wells is a 66 year old Syrian-speaking male who presents for evaluation of constipation and hemorrhoids . He tells me that he had undergone hemorrhoidectomy over 20 years ago while living in [facility]. He has had constipation since that time. 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 Wells that the [...] on April 05, 2016 11:03 [place]: [id number][place] [facility] [place]05[place] - 04/05/2016 Contributor system: [employer] * Final Report * Echo Complete-Doppler, Colorflow, M-Mode Transthoracic Echocardiography Report (TTE) Patient Demographics Patient Name TOVA WELLS Date of Study 04/05/2016 Corporate Gender Male Facility Race Ethnicity Date of 1950 Height: 70.08 inches Age 65 year(s) Weight: 255.74 pounds Accession Number [id number] BSA: 2.32 m2 Room Number BMI: 36.61 kg/m2 Referring Physician Marguerite OLIVARES Interpreting Physician Madison Bajwa MD Chronic Disease Manager Helen Conklin [facility] Indications Hypertension. Clinical History Hypertension. Hyperlipidemia. [...] Lateral Velocity: 6.58 cm/s E/Med E':7.104 E/Lat E':6.83393 Cardiac Anatomy Left Ventricle/Interventricular Septum The left [...] on March 03, 2016 15:40 Encounter info: [id number], [facility], Discharged OutPatient, 03/03/2016 - 03/03/2016 Sleep Consultation Patient: TOVA WELLS Age: 65 years Sex: Male : 1950 Associated Diagnoses: None Author: Raphael Stevens MD Asked to evaluate re sleep apnea by Marguerite Estrada. 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 65 yo male with obesity, HTN, HLD, prior kidney stones, and hx sleep studies about a year ago. Reports two sleep studies at [facility] about a year ago, second with mask . Reports was given a mask which he tried using at home (without a PAP device), but breathing was worse with the mask, so he stopped using. He was never given a PAP device. Called [facility], which faxed PSG reports. 03/29/15 PSG - 40 central apneas, 27 OA, 26 MA, 31 hypopneas; RDI 28, REM RDI 64, supine RDI 41, lateral RDI 5, low sat 79% 06-02-15 titration PSG - recommend CPAP 12, low [...] from PAP therapy 2. 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 PAP therapy had not been explained to him after prior PSG, and he had tried using mask without PAP 4. obesity, HTN, HLD, prior kidney stones Recommend: 1. Spent much time with patient discussing KRISTEN, CPAP, benefits of CPAP, sleep study results - with patient and UPPER SHAPER 2. ordered AutoCPAP 11-16 from [facility] with nasal mask; [facility] to call his UPPER SHAPER to help arrange 3. ordered TSH - came back 11.41, c/w hypothyroid; should start levothyroxine; will ask Marguerite Diamond to confirm starting treatment 4. recommended sleep side, not back, and weight loss 5. RTC 3 months - assess compliance/benefit of PAP then 60 minutes with patient, majority guidance counselor and coordination of care Impression and [...] 04/24/2023 3:10 PM EST Plan of Treatment Upcoming Encounters Date Type Department Care Team (Late st Contact Info) Description 08/06/2024 2:40 PM EDT Office Visit [facility] [address] [place] [address] Lyssa Estrada PA-C [address] [place] [address] Health Maintenance Due Date Last Done Comments [...] history exists Alcohol and Drug Screen 05/07/2024 09/05/19 24, 09/29/2021, 04/16/2020, Additional history exists Depression Annual Screen 05/07/2024 09/05/2023, 08/05 Xep-[id number]-20 ( season) 2024 Postponed from 01/06/2024 (Patient postponement) Imm-DTaP/Tdap/Td (3 - Td or Tdap) 01/14/2025 01/14/2015, 12/10/2014 Tobacco Screening 02/26/2025 02/27/2024 Colonoscopy 11/01/2027 10/31/2017 Colorectal Cancer Screening 11/01/2027 Hepatitis C Screening Completed 03/25/2018 Imm-Pneumococcal 65+ Completed 01/16/2023 Procedures Procedure Name Priority Date/Time Associated Diagnosis Comments REFERRAL SCANNED DOCUMENT 07/01/2024 3:00 AM EST TSH W/RFLX FREE T4 [...] Health Maintenance Results * REFERRAL SCANNED DOCUMENT (07/01/2024 3:00 AM EST) 07/01/2024 3:00 AM EST Lyssa Estrada PA-C SCAN REFERRAL Final Result * TSH W/RFLX FREE T4 (01/16/2023 2:56 PM EDT) TSH W/REFLEX TO FT4 0.55 0.40 - 4.50 mIU/L [facility] Blood Blood / Unknown 01/16/2023 2 :56 PM EDT 01/16/2023 2:56 PM EDT Lyssa Estrada PA-C LAB - BLOOD DRAW Edited Resu lt - Final Performing Organization Address City/[facility]/ZIP Co de Phone Number [facility] [address] [address], [facility] [address] [address] * (ABNORMAL) LIPID PANEL (01/16/2023 2:56 PM EDT) [facility] Signature CHOLESTEROL, TOTAL 96 <200 mg/dL [facility] HDL CHOLESTEROL 29(L) > OR = 40 mg/dL [facility] TRIGLYCERIDES 199(H) <150 mg/dL [facility] LDL-CHOLESTEROL 40 99 mg/dL (calc) [facility] Comment: Reference range: <100 Desirable range <100 mg/dL for primary prevention; ?? <70 mg/dL for patients with CHD or diabetic patients with > or = 2 CHD risk factors. LDL-C is now calculated using the Eduardo-Felix calculation, which is a validated novel method providing better accuracy than the Friedewald equation in the estimation of LDL-C. Eduardo SS et al. SAURABH. 2013;310(19): 4343-2817 (http://education.MiaSolé/faq/FOY710) CHOL/HDLC RATIO 3.3 <5.0 (calc) [facility] NON-HDL CHOLESTEROL 67 <130 mg/dL (calc) [facility] Comment: For patients with diabetes plus 1 major ASCVD risk factor, treating to a non-HDL-C goal of <100 mg/dL (LDL-C of <70 mg/dL) is considered a therapeutic option. Blood Blood / Unknown 01/16/2023 2 :56 PM EDT 01/16/2023 2:56 PM EDT us Lyssa Estrada PA-C LAB - BLOOD DRAW Final Resul t Performing Organization Address [facility]/ZIP Co de Phone Number [facility] [address] [address], [facility] [address] [address] * (ABNORMAL) COMPREHENSIVE METABOLIC PANEL (01/16/2023 2:56 PM EDT) [facility] GLUCOSE 94 65 - 99 mg/dL [facility] Comment: ?Fasting reference interval UREA NITROGEN (BUN) 19 7 - 25 mg/dL [facility] CREATININE (blood) 1.32(H) 0.70 - 1.28 mg/dL [facility] EGFR 58(L) > OR = 60 mL/min/1. 73m2 [facility] BUN/CREATININE RATIO 14 6 - 22 (calc) [facility] SODIUM 140 135 - 146 mmol/L [facility] POTASSIUM 3.7 3.5 - 5.3 mmol/L [facility] CHLORIDE 105 98 - 110 mmol/L [facility] CARBON DIOXIDE 25 20 - 32 mmol/L [facility] CALCIUM 9.1 8.6 - 10.3 mg/dL [facility] PROTEIN, TOTAL 7.1 6.1 - 8.1 g/dL [facility] ALBUMIN 4.2 3.6 - 5.1 g/dL [facility] GLOBULIN 2.9 1.9 - 3.7 g/dL (calc) [facility] ALBUMIN/GLOBULI N RATIO 1.4 1.0 - 2.5 (calc) [facility] BILIRUBIN, TOTAL 0.7 0.2 - 1.2 mg/dL [facility] ALKALINE PHOSPHATASE 75 35 - 144 U/L [facility] AST 24 10 - 35 U/L [facility] ALT 26 9 - 46 U/L [facility] Blood Blood / Unknown 01/16/2023 2 :56 PM EDT 01/16/2023 2:56 PM EDT us Lyssa Estrada PA-C LAB - BLOOD DRAW Edited Resu lt - Final [facility] [address] [address], [facility] [address] [place] [address] * HEPATITIS C ANTIBODY (03/25/2018 4:18 PM EST) [facility] HEPATITIS C VIRUS SCREEN NEGATIVE NEGATIVE [facility] Blood specimen (specimen) Blood / Unknown 03/25/2018 4:18 PM EST 03/25/2018 6:49 PM EST Narrative [facility] - 03/25/2018 9:20 PM EST [employer], a member of [address] [address] Aquatics Manager - Yanelis Nguyen MD PT ID [id number] ORD# [id number] Lyssa Estrada PA-C LAB - BLOOD DRAW Final Resul t [facility] [employer] [address], * COLONOSCOPY (10/31/2017) 10/31/2017 Impressions Cathryn Mendes [place] - 10/31/2017 Grade 3 internal hemorrhoids. Colon otherwise normal to Terminal Ileum including retroflexion. Abdominal digital rectal exam ( hemorrhoids). Colonoscopy in 7 years. Provider [facility] PROCEDURES Final Result from Last 3 Months or Most Recently Relevant to Health Maintenance Insurance [place] Care Teams Oil Plant Operator Relationship Specialty Start Date End Date Lukin, Lyssa, PA-C [facility] [place] [address] PCP - General Internal Medicine 08/20/15
--- OUTSIDE RECORDS SUMMARY | 2024-07-22 11:02 | XMS_ITS | Clinical Summary ---
Author Organization [employer] Address [address] [facility] [address] [place] [address] Care Team Providers Care Department Assistant Name Role Phone Unavailable Primary Care Provider [...] Most Recently Relevant to Health Maintenance Insurance [facility] MEDICAID STAND ADULT
== END 2024-07-22 10:19 | disposition home or self-care (01) ==
LOC: HO.PMC 09:53
PROVIDERS: PCP Physician Assistant; Visit Provider Nurse Practitioner Family
DX: M25.561 Pain in right knee (principal); M25.562 Pain in left knee; M47.817 Spondylosis without myelopathy or radiculopathy, lumbosacral region; M54.16 Radiculopathy, lumbar region; M51.369 Other intervertebral disc degeneration, lumbar region without mention of lumbar back pain or lower extremity pain; M48.062 Spinal stenosis, lumbar region with neurogenic claudication; M17.11 Unilateral primary osteoarthritis, right knee
CPT/HCPCS: 99214; G2211

== ENCOUNTER → 2024-07-22 09:52 | Outpatient (BNVA) | payer MEDICARE, MEDICAID, SELFPAY | PROVIDERS: PCP Physician Assistant; Visit Provider Nurse Practitioner Family | DX: M51.369 Other intervertebral disc degeneration, lumbar region without mention of lumbar back pain or lower extremity pain (principal); M47.817 Spondylosis without myelopathy or radiculopathy, lumbosacral region; M48.062 Spinal stenosis, lumbar region with neurogenic claudication; M54.16 Radiculopathy, lumbar region; M25.561 Pain in right knee; M25.562 Pain in left knee; M17.11 Unilateral primary osteoarthritis, right knee | CPT/HCPCS: 99212 ==

== ENCOUNTER 2024-09-30 08:23 | Outpatient (AMB) | payer MEDICARE, MEDICAID, SELFPAY ==
--- NOTE | 2024-09-30 08:25 | A.OFFVIS_ITS ---
Vital Signs 09/30/24 08:29 Height 6 ft Weight 280 lb BMI 38.0 BP 141/75 H Blood Pressure Location Lt brachial Position Sitting Pulse 61 Pulse Source Pulse Oximeter Pulse Oximetry (%) 97 Oxygen Delivery Method Room Air Intake Visit Reasons: Pain increasing after procedure Intake Note: Pain today while standing 5/10, sitting 4/10 Real Estate Specialist Required: Yes Real Estate Specialist Language: [place] Real Estate Specialist Name: Daughter Accompanied by: Daughter Allergies No Known Allergies Allergy (Verified 09/30/24 08:30) HPI Comments Details: The patient is a 73-year-old male presenting for chronic pain management related to lumbar spondylosis, radiculopathy and spinal stenosis. His symptoms, including lower lumbar pain, more on the left and left leg pain, surfaced approximately one month ago after recent L5-S1 interlaminar PETEY injection in June that initially offered partial relief. Denies any recent trauma, injury or falls. Presently, the patient's pain is exacerbated by prolonged standing and lumbar extension and somewhat alleviated by sitting. Medication management currently includes Tylenol and gabapentin. He describes pain levels of 5/10 when standing and 4/10 when sitting but reports a month ago pain was significantly higher, 8-9/10. The radiation of pain is noted to the left anterior aspect of the thigh and lateral left lower leg, with burning sensations in both feet, alleviated by gabapentin. - Onset and Timing: Pain began 1 month ago - Quality and Character: Pain is both lumbar and anterior left leg, radiating from the back to the leg. - Primary Location: L5-S1 region with radiation to the left leg. - Areas of Radiation: Anterior aspect of the left leg. - Exacerbating Factors: Prolonged standing. - Relieving Factors: Sitting, gabapentin administration. Uses cane with ambulat ion. - Functional Interference: Pain is worst with standing for extended periods, necessitating sitting every 10 minutes. - Affect: Unspecified psychological impact, but mood or psychological wellbeing not explicitly discussed. - Analgesia: Tylenol and gabapentin (300 mg twice daily). Pain level 5/10 standing, 4/10 sitting. - Adverse Effects: No reported adverse effects from current medications. - Activities of Daily Living: Standing is significantly restricted. The goal is to reduce pain levels to improve functionality. - Aberrant Drug Related Behaviors: None reported or observed. PRIOR: The patient is a 73-year-old male presenting with a follow-up for lumbar radiculopathy and management of chronic pain. He previously received an interlaminar epidural steroid injection at the L5-S1 level, aimed at alleviating lumbar radiculopathy and pain stemming from disc degeneration, arthritis, and spinal stenosis, particularly severe at L5-S1. The injection provided mild to moderate relief, with current pain levels still significant. The patient reports continuous lower extremity discomfort, as well as severe back pain associated with bending and backwards extension movements. He also experiences right knee pain affecting mobility. Conservative treatments, such as Tylenol and lidocaine patches, have been partially effective, with the patient avoiding NSAIDs like Ibuprofen per his PCP recommendations. Reports previous gel and cortisone injections with partial relief. He is interested to address his right knee pain and continue monitor back symptoms for next few months. Denies any recent cough, cold, infection, fever or other significant changes in medical history since last office visit. - Affect: Chronic pain affects functionality and mobility, especially when bending and walking. - Analgesia: Uses Tylenol and lidocaine patches, with avoidance of Ibuprofen due to medical considerations; reports partial relief. - Adverse Effects: No reported adverse effects directly related to pain management medications. - Activities of Daily Living: Pain hinders ambulation, stair navigation, and sleeping unless stationary; knee pain adds to mobility issues. - Aberrant Drug-Related Behaviors: None reported; patient uses prescribed medications as needed. Past Procedures: 07/01/24: L5-S1 Interlaminar PETEY-50% ongoing pain relief PRIOR: Patient presents today for follow up today to discuss recent lumbar spine MRI results. He continues to endorse low back pain with radiculopathy, both legs, worse on the left. Pain radiates into his buttocks and into lower calves and ankles with numbness and tingling. He also reports bilateral knee pain and is interested in therapeutic injections for both pain generators, initially for back pain. His mobility and functioning has been significantly limited due to pain. Reports increase low back and left leg pain with coughing or bowel movements when straining. Recent bilateral lower extremities US was negative for DVT. Lumbar spine MRI is noted below and was reviewed with patient and family today. Patient is hesitant towards back surgery but will consider Neurosurgical evaluation if no pain relief or function improvement with injection. Denies any fever or chills, abdominal or groin pain, foot drop, bladder or bowel dysfunction or saddle anesthesia. PRIOR: Patient is a pleasant 73-year-old male with a history of chronic low back pain, left lumbar radiculopathy, bilateral knee pain, hand arthritis, who presents today for initial evaluation of acute on chronic low back pain with radicular symptoms. Patient is accompanied by his grand-daughter. Real Estate Specialist not utilized today, provider is fluent in [place]. Denies any specific trauma, injury or inciting events. Reports history of mechanical fall a few months ago which increased his right knee pain. 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 Back pain is axial and also radiates into bilateral lower extremities posteriorly and into his feet. Reports significant cramping and tenderness in his calves and upper inner thighs, worse on the left. Denies previous spine surgery or injections. He is followed at [facility] for knee and hand arthritis and regularly receives cortisone and gel knee injections. Back pain is aggravated by walking, twisting, bending, climbing stairs, weight bearing, changing positions and partially relieved with rest, Tylenol, topical applications, and heat therapy. Patient reports he takes gabapentin for gout in his feet and it helps with leg cramping. He completed a course of physical therapy and massages without any improvement. Patient reports recently stopped swimming due to increased pain. Pain affects his daily activities and functioning, mobility, sleep, and recreational activities. Denies any fever or chills, abdominal or groin pain, foot drop, bladder or bowel dysfunction or saddle anesthesia. Reports left lower extremity weakness due to pain. Ambulates with mildly antalgic gait with the use of cane. Oswestry low back disability score =27 (severe disability) Location: Lower back radiates down bilateral legs, worse on the left Duration: Chronic pain for many years, worsening for past 1-2 years Characteristics of symptom or complaint: Aching, tingling, pins and needles, shooting, pulling, cramping Aggravating or associated factors: Movements, climbing stairs, bending, standing, walking, cold weather Relieving factors: Stretching, Tylenol, IcyHot, lidocaine patches, heat, rest Treatment: PT, back brace, massages, aqua therapy, cane, knee injections [facility] Medical History Pre-diabetes HTN (hypertension) Hand arthritis Bilateral knee pain Lumbar radiculopathy Chronic low back pain Constipation Surgical History H/O hemorrhoidectomy History of nasal surgery (~2023) Social History Alcohol intake: never Patient Tobacco Use Status: Never used Tobacco Review of Systems Const Details: - General: Denies fever, chills, cough, rash, chest pain, shortness of breaths, unintentional weight loss. Reports constipation relieved with senna and dietary fiber. - Musculoskeletal: Reports lumbar back pain, left leg pain radiates to anterior aspect, no acute weakness, reports burning sensation in legs. - Neurological: Denies urinary or bowel incontinence, reports pain increasing with prolonged standing, denies weakness, or saddle anesthesia. All systems reviewed & are unremarkable except as noted in HPI and below Physical Exam Vital Signs: Last Vital Signs Pulse 61 09/30/24 08:29 BP 141/75 H 09/30/24 08:29 Pulse Ox 97 09/30/24 08:29 Oxygen Delivery Method Room Air 09/30/24 08:29 BMI result Body Mass Index 38.0 General: Appears afebrile. Alert and oriented. Mood and affect appropriate. Follows and participates in conversation appropriately. Respiratory effort is unlabored. No cough. Able to transition from sit to stand unassisted. Uses cane with ambulation. Ambulates with bilaterally normal heel strike and toe off, reports increase in pain with toe standing, worse on the left. General: Yes no CVA tenderness Back/Spine/Pelvis Other: Limited lumbar ROM due to pain. Antalgic gait with mild limping. Lumbar extension reproduces moderate-severe pain and flexing forward reproduces mild- moderate pain. 2+ pedal pulses bilaterally. Straight leg rise with dorsiflexion positive on the left in L4-L5 distribution. Diminished patellar and achilles reflexes bilaterally. Facet loading test positive bilaterally. Waqar sign positive bilaterally, Dane?s reproduces lateral hip pain bilaterally, Pelvic compression and Stinchfield tests are negative bilaterally. No groin pain with I/E hip rotations. Valsalva maneuver is negative. Back: no CVA tenderness Cervical Spine: cervical ROM normal, cervical muscular tenderness and No Cervical spine tenderness Thoracic/Lumbar Spine: thoracic and lumbar spine normal to inspection, No Thoracic/lumbar spine scar(s), Lasegue's sign positive on the left and localized, pain with thoraco-lumbar ROM, paraspinal muscle tenderness on the left greater than right, thoraco-lumbar ROM limited, No thoracic spinal tenderness and lumbar spinal tenderness (L4-S1) Pelvis: no buttock tenderness and no sciatic notch tenderness Sacroiliac joints: bilaterally tender to palpation Extrem General: Yes capillary refill normal, Yes no clubbing, cyanosis or edema and Yes no calf tenderness Results Reviewed Results Reviewed: MR SPINE LUMBAR without CONTRAST 03/24/24 at [facility] INDICATION: Radiculopathy, lumbar region. Intervertebral disc degeneration. TECHNIQUE: Unenhanced multiplanar, multisequence MR imaging of the lumbar spine. COMPARISON: None Available. FINDINGS: Normal lumbar alignment is demonstrated. Vertebral heights are well maintained. Bone marrow signal is within normal limits, and no suspicious osseous lesion is identified. Conus medullaris is unremarkable. There is multilevel disc desiccation and disc space narrowing. There is minimal bone marrow edema in the L2 vertebral body suggesting mild type I Modic endplate changes. There is 1 to 2 mm retrolisthesis of L2 on L3 and L3 on L4. Paraspinal soft tissues and visualized portions of the abdomen and pelvis are unremarkable. Bilateral renal cysts are demonstrated. At L1-2 there is mild annular disc bulge and mild facet arthrosis. Central canal is patent. There is moderate right and mild left neural foraminal stenosis. At L2-3 there is mild annular disc bulge and left foraminal small disc protrusion mild facet arthrosis. There is mild narrowing of the left lateral recess. There is mild/moderate right and moderate to advanced left neural foraminal stenosis. At L3-4 there is broad-based disc bulge and mild to moderate facet arthrosis. There is moderate central canal stenosis with advanced bilateral neural foraminal stenosis.. At L4-5 there is broad-based disc bulge and moderate to advanced facet arthrosis greater on the left. There is moderate to advanced central canal stenosis with advanced bilateral neural foraminal stenosis. At L5-S1 there is broad-based disc bulge and central disc protrusion. There is moderate to advanced central canal and right greater than left lateral recess stenosis with contact of the descending right S1 nerve root. There is advanced high-grade bilateral neural foraminal stenosis. IMPRESSION: Multilevel significant degenerative changes of the lumbar spine. Varying degrees of central canal or neural foraminal stenosis greater at L5-S1 with advanced high-grade bilateral neural foraminal stenosis. Less pronounced findings as described. US TRIPLEX LOWER EXTREMITY, BILATERAL 03/14/[address] [facility] [place]: Pain in right lower leg FINDINGS: Respiratory variation, normal compression and augmented flow are noted throughout the bilateral lower extremities. The visualized common femoral vein, superficial femoral vein, profunda femoral vein, popliteal vein and midcalf peroneal and posterior tibial venous segments show no evidence of deep venous thrombosis bilaterally. There is no Valdes's cyst. IMPRESSION: No evidence of deep venous thrombosis involving the bilateral lower extremities. Assessment & Plan Assessment & Plan (1) Lumbosacral spondylosis: Code(s): M47.817 - Spondylosis without myelopathy or radiculopathy, lumbosacral region Category: Medical (2) Lumbar radiculopathy: Code(s): M54.16 - Radiculopathy, lumbar region Category: Medical (3) Lumbar degenerative disc disease: Code(s): M51.369 - Other intervertebral disc degeneration, lumbar region without mention of lumbar back pain or lower extremity pain Category: Medical (4) Chronic low back pain: Code(s): M54.50 - Low back pain, unspecified; G89.29 - Other chronic pain Category: Medical (5) Spinal stenosis, lumbar region with neurogenic claudication: Code(s): M48.062 - Spinal stenosis, lumbar region with neurogenic claudication Category: Medical Plan The management plan for this patient includes maintaining gabapentin and Tylenol therapy for chronic pain. We plan to monitor response to therapy and renal function, considering naproxen cautiously if needed. We will reach out to PCP office for most recent lab analysis. Potential for chiropractic intervention and repeated PETEY injection discussed subject to symptom relief. Procedural repetition and MRI follow-up will be re- evaluated upon symptom persistence or aggravation. We reviewed red flag symptoms for worsening back pain, necessitating urgent action. All questions and concerns have been answered and patient agreed with the plan. Follow up after chiropractic therapy and sooner as needed. Patient was informed and verbally consented to the use of an ambient scribe for clinic note documentation during this visit. Orders: Referrals Chiropractic Referral G89.29 - Other chronic pain, M47.817 - Spondylosis without myelopathy or radiculopathy, lumbosacral region, M48.062 - Spinal stenosis, lumbar region with neurogenic claudication, M51.369 - Other intervertebral disc degeneration, lumbar region without mention of lumbar back pain or lower extremity pain, M54.16 - Radiculopathy, lumbar region, M54.50 - Low back pain, unspecified Medications: New acetaminophen ER (Tylenol Arthritis Pain) 1,300 mg (2 x 650 mg) PO Q12H PRN 120 tabs 3RF pain M47.817 - Spondylosis without myelopathy or radiculopathy, lumbosacral region, M51.369 - Other intervertebral disc degeneration, lumbar region without mention of lumbar back pain or lower extremity pain Refilled sennosides (Senna Laxative) 8.6 mg PO BID PRN 60 tabs 3RF constipation K59.00 - Constipation, unspecified Patient Instructions: I spoke with the patient about his chronic lumbar radiculopathy and spinal stenosis, particularly emphasizing ongoing management through pharmacological therapy with gabapentin and Tylenol. We discussed potential additions such as naproxen pending renal function review. Risks and benefits of repeated corticosteroid injections and chiropractic options were outlined. We agreed regular self-monitoring for symptoms indicative of worsening condition or neurological compromise is crucial. Patients will follow up as required based on progression or emergence of any alarming symptoms. Coding Level of Care Code Est Pt Level 4 (67524) Complex EM visit Add On G2211 Diagnoses Lumbosacral spondylosis M47.817 Lumbar radiculopathy M54.16 Lumbar degenerative disc disease M51.369 Chronic low back pain M54.50; G89.29 Spinal stenosis, lumbar region with neurogenic claudication M48.062
[2024-09-30 08:29] VITALS: BP 141/75; PULSE 61; O2SAT 97; BMI 38.0
--- OUTSIDE RECORDS SUMMARY | 2024-09-30 08:41 | XMS_ITS | Clinical Summary ---
Author Organization [employer] Address [address] [place] [address] Care Team Providers Care Color Paste Mixer Name Role Phone Unavailable Primary Care Provider [...] EDT Sexual Orientation Choose not to disclose 06/27/ 2023 1:34 PM EDT Last Filed Vital Signs [...] patient's age to complete this topic Meningococcal B Vaccine Aged Out No l onger eligible based on patient's age to complete [...] Most Recently Relevant to Health Maintenance Insurance [place] AD[place]
== END 2024-09-30 08:54 | disposition home or self-care (01) ==
LOC: HO.PMC 08:24
PROVIDERS: PCP Physician Assistant; Visit Provider Nurse Practitioner Family
DX: M47.817 Spondylosis without myelopathy or radiculopathy, lumbosacral region (principal); M54.16 Radiculopathy, lumbar region; M51.369 Other intervertebral disc degeneration, lumbar region without mention of lumbar back pain or lower extremity pain; M54.50 Low back pain, unspecified; G89.29 Other chronic pain; M48.062 Spinal stenosis, lumbar region with neurogenic claudication
CPT/HCPCS: 99214; G2211

== ENCOUNTER → 2024-09-30 08:23 | Outpatient (BNVA) | payer MEDICARE, MEDICAID, SELFPAY | PROVIDERS: PCP Physician Assistant; Visit Provider Nurse Practitioner Family | DX: M47.817 Spondylosis without myelopathy or radiculopathy, lumbosacral region (principal); M54.16 Radiculopathy, lumbar region; M51.369 Other intervertebral disc degeneration, lumbar region without mention of lumbar back pain or lower extremity pain; M54.50 Low back pain, unspecified; M48.062 Spinal stenosis, lumbar region with neurogenic claudication; G89.29 Other chronic pain | CPT/HCPCS: 99212 ==